=== PATIENT | female | born 1950 | race Caucasian/White ===

== ENCOUNTER 2017-04-27 09:18 | Emergency (ER) | payer MEDICARE, OTHER ==
[~2017-04-27] VITALS: Ht 157.5 cm; Wt 41.3 kg
[~2017-04-27 09:18] MED LIST: ACETAMINOPHEN-1 EAC1 PO; ADVAIR 250-501 EACH IH; ADVAIR 500-501 EACH INH; ADVAIR HFA 230M12 GM; ADVAIR HFA 230M12 GM PO; ALBUTEROL INH; ALPRAZOLAM; ALPRAZOLAM ER1 MG PO; ALPRAZOLAM PO; AUGMENTIN 875875 MG PO; B12INJ IM; BUTRANS1 EAC1 TD; CALCIUM 600 +1 EAC1 PO; COMBIVENT INH; DESYREL; DESYREL PO; DILAUDID 2 MG TA2 MG PO; DOXYCYCLINE 10100 M1 PO; ESTRACE2 MG PO; FENTANYL1 EAC3 TOP; FLEXERIL PO; FLUSH FLUSH; GLYCOLAX255 GM PO; HEPARIN 1,1000 UNIT/ IV; IBUPROFEN 800800 M1 PO; KLOR-CON 1010 MEQ PO; LASIX 20 MG TAB20 MG PO; LEVAQUIN 500 M500 M1 PO; LEVAQUIN 500 M500 MG PO; LIDODERM 5%1 PATC1 TRANSDERM; LOMOTIL TABLET1 EACH PO; LOPERAMIDE 2 MG2 M1 PO; LYRICA 75 MG CA75 MG PO; METAXALONE800 MG PO; MIDODRINE HCL 55 M1 PO; MOBIC7.5 MG PO; MUCINEX PO; MUCINEX TA600 MG/TA2 PO; NAPROSYN500 MG PO; NORCO 5-325 TA1 EACH PO; OMEPRAZOLE40 MG PO; ONDANSETRON HCL4 M2 PO; OXYGEN MISCELL; PERCOCET 5-3251 EACH PO; PERCOCET PO; POTASSIUM20 PO; PREDNISONE 10 M10 M1 PO; PREDNISONE 10 M10 MG; PREDNISONE 20 M20 M1 PO; PREDNISONE 20 M20 MG PO; PROAIR HFA8.5 GM INH; PROTONIX40 M1 PO; RANITIDINE 150150 M1 PO; SERTRALINE HCL50 MG PO; SKELAXIN 800 M800 M1 PO; SPIRIVA INH; TARCEVA100 MG PO; TRAZODONE HCL100 MG PO; VENTOLIN HFA 1818 GM INH; VENTOLIN HFA INH8 GM INH; XOPENEX; ZOCOR 20 MG TAB20 M1 PO; ZOCOR20 MG PO; ZOFRAN ODT4 MG PO; ZOLOFT OR
[2017-04-27] MEDS ORDERED: ADVAIR HFA 230M12 GM INH (09:29)
[2017-04-27 09:58] LABS: ABSOLUTE EOSINOPHILS 0.3 thou/uL (0.0-0.7); ABSOLUTE LYMPHOCYTES 0.6 thou/uL (0.8-5.3); ABSOLUTE MONOCYTES 0.3 thou/uL (0.0-1.2); BASOPHILS 0.5 %; EOSINOPHILS 6.2 %; HEMATOCRIT 35.3 % (37.0-47.0); HEMOGLOBIN 11.5 gm/dL (12.0-15.0); LYMPHOCYTES 13.2 %; MCH 30.9 pg (26.0-34.0); MCHC 32.6 g/dL (28.0-37.0); MCV 94.9 fL (80.0-100.0); MONOCYTES 8.1 %; MPV 7.9 fl. (7.2-11.1); NUCLEATED RBCS 0 /100WBC; PLATELET COUNT* 236 thou/uL (150-400); RBC 3.72 mil/uL (4.20-5.00); RDW-CV 14.8 % (10.5-14.5); WBC 4.2 thou/uL (4.0-11.0)
[2017-04-27 10:05] LABS: INR 1.1; PROTIME 10.9 Seconds (9.20-11.50)
[2017-04-27 10:07] LABS: ANION GAP 3 mmol/L (7-16); BUN 14 mg/dL (7-18); CALCIUM 9.1 mg/dL (8.5-10.1); CHLORIDE 101 mmol/L (98-107); CO2 32 mmol/L (21-32); CREATININE 1.3 mg/dL (0.6-1.3); GLUCOSE 127 mg/dL (70-99); POTASSIUM 3.2 mmol/L (3.5-5.1); SODIUM 136 mmol/L (136-145)
[2017-04-27 10:16] LABS: ALBUMIN 3.7 g/dL (3.4-5.0); ALKALINE PHOSPHATASE 97 U/L (46-116); LIPASE 53 U/L (73-393); NT-PRO BRAIN NAT PEPTIDE 316 pg/mL (<300); SGOT 20 U/L (15-37); SGPT 24 U/L (30-65); TOTAL BILIRUBIN 0.4 mg/dL (<0.1-1.0); TOTAL PROTEIN 6.9 g/dL (6.4-8.2); TROPONIN-I LEVEL <0.06 ng/mL (<0.06)
[2017-04-27 10:41] LABS: URINE BILIRUBIN NEGATIVE (Negative); URINE BLOOD TRACE (Negative); URINE CLARITY CLEAR; URINE COLOR YELLOW; URINE GLUCOSE-RANDOM NEGATIVE (Negative); URINE KETONES NEGATIVE (Negative); URINE LEUKOCYTES-REFLEX NEGATIVE (Negative); URINE NITRITE-REFLEX NEGATIVE (Negative); URINE PROTEIN 1+ (Negative); URINE UROBILINOGEN 0.2 E.U./dl (0.2-1.0)
[2017-04-27 12:38] VITALS: BP 107/58
--- NOTE | 2017-04-28 06:18 | EKG ---
[place] [address] ELECTROCARDIOGRAM REPORT Name: YASMIN ROBLES Room: [facility]#: [id number] Admission: 04/27/17 Attend Phys: Discharge: 04/27/17 Date of : 52 Report #: [id number] THIS REPORT FOR: //name// [facility] ED Test Date: 2017-04-27 Test Time: 09:24:54 Pat Name: YASMIN ROBLES Department: Room: Gender: F Employee Relations Manager: Piyush ESTRADA : 1950 Requested By: Tomas Stahl Order Number: [id number] MD: Patricio Garcia Measurements Intervals [place] Rate: 82 P: 83 ND: 153 QRS: 43 QRSD: 83 T: 58 QT: 379 QTc: 443 Interpretive Statements Sinus rhythm Possible left atrial enlargement RSR' in V1 or V2, right VCD or RVH Compared to ECG 09/15/2016 00:05:25 RSR' in V1 or V2 now present Sinus tachycardia no longer present Myocardial infarct finding no longer present Electronically Signed On 04-28-2017 6:18:24 COMPLIANCE PARALEGAL by Patricio Garcia [email or web address] <ELECTRONICALLY SIGNED> By: Patricio Garcia MD, FACC 04/28/17617 3 3 Patricio Garcia MD, FAC /EPI
== END 2017-04-27 12:40 | disposition home or self-care (01) ==
LOC: M.ERS 09:18
PROVIDERS: Emergency Medicine
DX: R07.89 Other chest pain (principal); F32.9 Major depressive disorder, single episode, unspecified; E78.00 Pure hypercholesterolemia, unspecified; Z85.118 Personal history of other malignant neoplasm of bronchus and lung; Z87.891 Personal history of nicotine dependence; Z88.1 Allergy status to other antibiotic agents; Z88.5 Allergy status to narcotic agent; Z85.830 Personal history of malignant neoplasm of bone

== ENCOUNTER 2017-05-17 21:13 | Emergency (ER) | payer MEDICARE, OTHER ==
[~2017-05-17] VITALS: Ht 154.9 cm; Wt 41.3 kg
[~2017-05-17 21:13] MED LIST changes: +ADVAIR HFA 230M12 GM INH
[2017-05-17 22:01] LABS: URINE BILIRUBIN NEGATIVE (Negative); URINE BLOOD NEGATIVE (Negative); URINE CLARITY CLEAR; URINE COLOR YELLOW; URINE GLUCOSE-RANDOM NEGATIVE (Negative); URINE KETONES NEGATIVE (Negative); URINE LEUKOCYTES-REFLEX NEGATIVE (Negative); URINE NITRITE-REFLEX NEGATIVE (Negative); URINE PROTEIN NEGATIVE (Negative); URINE SPECIFIC GRAVITY 1.015 (1.005-1.030); URINE UROBILINOGEN 0.2 E.U./dl (0.2-1.0)
[2017-05-17 23:04] VITALS: BP 128/58
== END 2017-05-17 23:06 | disposition home or self-care (01) ==
LOC: M.ERS 21:13
PROVIDERS: Emergency Medicine
DX: G89.29 Other chronic pain (principal); M54.5 Low back pain; F41.9 Anxiety disorder, unspecified; F32.9 Major depressive disorder, single episode, unspecified; E78.00 Pure hypercholesterolemia, unspecified; Z85.118 Personal history of other malignant neoplasm of bronchus and lung; Z88.1 Allergy status to other antibiotic agents; Z88.5 Allergy status to narcotic agent; Z87.891 Personal history of nicotine dependence

== ENCOUNTER → 2017-09-09 | Outpatient (CLI) | payer MEDICARE, OTHER | LOC: M.RAD 13:26 | DX: S92.324A Nondisplaced fracture of second metatarsal bone, right foot, initial encounter for closed fracture (principal); S92.334A Nondisplaced fracture of third metatarsal bone, right foot, initial encounter for closed fracture; S92.344A Nondisplaced fracture of fourth metatarsal bone, right foot, initial encounter for closed fracture; C34.90 Malignant neoplasm of unspecified part of unspecified bronchus or lung; J44.9 Chronic obstructive pulmonary disease, unspecified; X58.XXXA Exposure to other specified factors, initial encounter; Y93.89 Activity, other specified; Y92.89 Other specified places as the place of occurrence of the external cause; Y99.8 Other external cause status ==

== ENCOUNTER 2018-05-04 14:24 | Inpatient (IN) | payer MEDICARE, OTHER ==
[~2018-05-04] VITALS: Ht 154.9 cm; Wt 44.0 kg
--- NOTE | ~2018-05-04 | PROC ---
[address] [address] PROCEDURE REPORT Name: YASMIN ROBLES Room: [address]R.#: [id number] Admission: 05/04/18 Attend Phys: Fern Bernardo Discharge: 05/09/18 Date of : 52 Report #: [id number] THIS REPORT FOR: //name// For GI report, please see the Provation report in Perceptive 7 content. By: 0838Medical Records Staff CHANCE /RAJEEV
--- NOTE | ~2018-05-04 | CON ---
[address] [address] CONSULTATION Name: MARGARETYASMIN L Room: [address] IN .R.#: [id number] Admission: 05/04/18 Attend Phys: Fern Bernardo Discharge: Date of : 52 Report #: [id number] THIS REPORT FOR: //name// CC: BARBER Walker DICTATED BY: Birgit Lucero [facility] DATE OF SERVICE: 05/05/2018 Please note, at the time of this dictation the patient was seen and physically examined by myself. REASON FOR CONSULTATION: Dysphagia and worsening of her GERD. HISTORY OF PRESENT ILLNESS: This pleasant 67-year-old female who presents with difficulty swallowing, which she states for the last 2 weeks, which has worsened over the last several days. She states she will become very chocked and will cause her to vomit with both liquids and solids. She does take ranitidine regularly, but she has been eating a lot of Tums and other antacids without any relief. She is complaining of extreme chest discomfort with these acid reflux symptoms. The patient did undergo an EGD back in 04/2016 that showed a clean base gastric ulcer as well as a cratered duodenal ulcer and never had any further followup at that time. She also had a colonoscopy back in 2011; she was noted to have diverticulum, nonbleeding internal hemorrhoids and 2 polyps that were tubular adenoma. The patient states that her bowels move anywhere from daily to a couple of days, in between she will have constipation and then some diarrhea. She states her stools are dark, but she does take an iron supplement. ALLERGIES: MORPHINE AND ERYTHROMYCIN BASE. MEDICATIONS: From home, oxygen, albuterol, Tarceva, sertraline, ProAir, trazodone, Spiriva, alprazolam, Zocor, Advair, proamatine, ranitidine 150 mg. PAST MEDICAL HISTORY: History of lung cancer on the left with mets to the bone, depression, high cholesterol and chronic opioid dependency. FAMILY HISTORY: Noncontributory. SOCIAL HISTORY: Past history of tobacco use, negative alcohol or illegal drug use. REVIEW OF SYSTEMS: Twelve-point review [place] [address] CONSULTATION Name: YASMIN ROBLES Room: [address]#: [id number] Admission: 05/04/18 Attend Phys: Fern Bernardo Discharge: Date of : 52 Report #: [id number] except what is mentioned in the HPI. PHYSICAL EXAMINATION: VITAL SIGNS: Temperature 36.4, pulse 73, respirations 16, blood pressure 123/60. HEART: Regular rate and rhythm. LUNGS: Diminished. ABDOMEN: Soft, positive bowel sounds in all 4 quadrants with no masses or tenderness noted. LABORATORY DATA: Hemoglobin is 11.3, hematocrit 34.9, white count is 4.8, platelets 157. PT is 11, INR is 1.1. GFR is 41. IMPRESSION: 1. Dysphagia, both to solids and liquids. 2. Vomiting. 3. Gastroesophageal reflux disease, worsening despite ranitidine. 4. History of gastric and duodenal ulcers. 5. History of lung cancer with mets to the bone and O2 dependent. 6. History of colon polyps. PLAN: 1. EGD today at 1:[address] Whitfield. 2. Further recommendations to be made once the procedure has been performed. Thank you for allowing us to participate in this patient's care. Please do not hesitate to call with any questions in regard to this consult. ADDENDUM: I have seen and examined the patient and agree with plans that have been outlined by our nurse practitioner, Birgit Lucero. Because of her complaints of progressive dysphagia and chest discomfort, we will proceed with upper endoscopy today and make further recommendations thereafter. By: 1120 [id number] Whitfield DO /nt
[~2018-05-04 14:24] MED LIST changes: +FENTANYL PATCH75 MCG TRANSDERM; -FENTANYL1 EAC3 TOP
[2018-05-04 14:30] VITALS: BP 147/62
[2018-05-04 15:13] LABS: ABSOLUTE EOSINOPHILS 0.2 thou/uL (0.0-0.7); ABSOLUTE LYMPHOCYTES 0.5 thou/uL (0.8-5.3); ABSOLUTE MONOCYTES 0.5 thou/uL (0.0-1.2); ABSOLUTE NEUTROPHILS 3.6 thou/uL (1.6-8.1); BASOPHILS 0.4 %; EOSINOPHILS 5.1 %; HEMATOCRIT 34.9 % (37.0-47.0); HEMOGLOBIN 11.3 gm/dL (12.0-15.0); LYMPHOCYTES 10.6 %; MCH 31.7 pg (26.0-34.0); MCHC 32.3 g/dL (28.0-37.0); MCV 98.4 fL (80.0-100.0); MONOCYTES 9.4 %; MPV 8.8 fl. (7.2-11.1); NUCLEATED RBCS 0 /100WBC; PLATELET COUNT* 157 thou/uL (150-400); POLYS 74.5 %; RBC 3.55 mil/uL (4.20-5.00); RDW-CV 12.9 % (10.5-14.5); WBC 4.8 thou/uL (4.0-11.0)
[2018-05-04 15:21] LABS: ANION GAP 7 mmol/L (7-16); BUN 14 mg/dL (7-18); CALCIUM 8.4 mg/dL (8.5-10.1); CHLORIDE 104 mmol/L (98-107); CO2 26 mmol/L (21-32); CREATININE 1.3 mg/dL (0.6-1.3); GLUCOSE 86 mg/dL (70-99); POTASSIUM 4.5 mmol/L (3.5-5.1); SODIUM 137 mmol/L (136-145)
[2018-05-04 15:24] LABS: APTT 29.6 Seconds (25.0-31.3); INR 1.1
[2018-05-04 15:44] LABS: ALBUMIN 3.2 g/dL (3.4-5.0); ALKALINE PHOSPHATASE 71 U/L (46-116); CK-MB MASS 1.4 ng/mL (<0.5-3.6); LIPASE 51 U/L (73-393); MAGNESIUM 2.3 mg/dL (1.8-2.4); NT-PRO BRAIN NAT PEPTIDE 313 pg/mL (<300); SGOT 29 U/L (15-37); SGPT 32 U/L (30-65); TOTAL BILIRUBIN 0.5 mg/dL (<0.1-1.0); TOTAL PROTEIN 6.1 g/dL (6.4-8.2); TROPONIN-I LEVEL <0.06 ng/mL (<0.06)
[2018-05-04 20:00] VITALS: BP 118/43
[2018-05-05] VITALS: BP 112/48
[2018-05-05 04:00] VITALS: BP 91/47
[2018-05-05 08:00] VITALS: BP 123/60
[2018-05-05 11:58] VITALS: BP 86/45
[2018-05-05 12:47] LABS: HEMATOCRIT 28.6 % (37.0-47.0)
[2018-05-05 13:12] LABS: HEMOGLOBIN 9.3 gm/dL (12.0-15.0)
[2018-05-05 15:33] VITALS: BP 113/48
--- NOTE | 2018-05-05 18:19 | EKG ---
[place] [address] ELECTROCARDIOGRAM REPORT Name: YASMIN ROBLES Room: [address] ADM IN R.#: [id number] Admission: 05/04/18 Attend Phys: Fern Bernardo Discharge: Date of : 52 Report #: [id number] THIS REPORT FOR: //name// [facility] Test Date: 2018-05-04 Test Time: 14:32:19 Pat Name: YASMIN ROBLES Department: Room: [facility] Gender: F Broke Worker: : 1950 Requested By: Alexey Doyle Order Number: [id number] MD: Sina Joe Measurements Intervals [place] Rate: 69 P: 56 [place]: 165 QRS: 48 QRSD: 74 T: 75 QT: 373 QTc: 400 Interpretive Statements Sinus rhythm Probable left atrial enlargement RSR' in V1 or V2, right VCD or RVH Compared to ECG 04/27/2017 09:24:54 No significant changes Electronically Signed On 05-05-2018 18:19:13 TRANSITION PROGRAM MANAGER by Sina Joe [email or web address] <ELECTRONICALLY SIGNED> By: Sina Joe MD, FAC 05/05/18 1819 1432 1432 Sina Joe MD, [facility] /EPI
[2018-05-05 19:28] LABS: URINE BILIRUBIN NEGATIVE (Negative); URINE BLOOD TRACE (Negative); URINE CLARITY CLEAR; URINE COLOR YELLOW; URINE GLUCOSE-RANDOM NEGATIVE (Negative); URINE KETONES NEGATIVE (Negative); URINE LEUKOCYTES-REFLEX NEGATIVE (Negative); URINE NITRITE-REFLEX NEGATIVE (Negative); URINE PROTEIN NEGATIVE (Negative); URINE UROBILINOGEN 0.2 E.U./dl (0.2-1.0)
[2018-05-05 20:00] VITALS: BP 106/47
[2018-05-06] VITALS (8 sets, daily range): BP systolic 103–136; BP diastolic 31–64
[2018-05-06 05:38] LABS: ABSOLUTE EOSINOPHILS 0.3 thou/uL (0.0-0.7); ABSOLUTE LYMPHOCYTES 0.6 thou/uL (0.8-5.3); ABSOLUTE MONOCYTES 0.4 thou/uL (0.0-1.2); ABSOLUTE NEUTROPHILS 1.8 thou/uL (1.6-8.1); BASOPHILS 0.6 %; EOSINOPHILS 9.3 %; HEMATOCRIT 28.5 % (37.0-47.0); HEMOGLOBIN 9.3 gm/dL (12.0-15.0); LYMPHOCYTES 18.3 %; MCH 31.3 pg (26.0-34.0); MCHC 32.5 g/dL (28.0-37.0); MCV 96.2 fL (80.0-100.0); MPV 8.9 fl. (7.2-11.1); NUCLEATED RBCS 0 /100WBC; PLATELET COUNT* 152 thou/uL (150-400); POLYS 58.8 %; RBC 2.97 mil/uL (4.20-5.00); RDW-CV 12.9 % (10.5-14.5)
[2018-05-06 05:53] LABS: ALBUMIN 2.5 g/dL (3.4-5.0); CALCIUM 7.6 mg/dL (8.5-10.1); CREATININE 0.9 mg/dL (0.6-1.3); MAGNESIUM 1.8 mg/dL (1.8-2.4); POTASSIUM 4.4 mmol/L (3.5-5.1); TOTAL BILIRUBIN 0.2 mg/dL (<0.1-1.0); TOTAL PROTEIN 5.2 g/dL (6.4-8.2)
[2018-05-06 06:35] LABS: ESR (SEDRATE) 5 mm/hr (0-30)
[2018-05-07] VITALS (7 sets, daily range): BP systolic 71–114; BP diastolic 32–45
[2018-05-08 03:45] VITALS: BP 96/59
[2018-05-08 05:38] LABS: HEMOGLOBIN 10.9 gm/dL (12.0-15.0)
[2018-05-08 05:40] LABS: HEMATOCRIT 32.9 % (37.0-47.0); MCH 31.5 pg (26.0-34.0); MCHC 33.2 g/dL (28.0-37.0); MCV 94.6 fL (80.0-100.0); NUCLEATED RBCS 0 /100WBC; PLATELET COUNT* 204 thou/uL (150-400); RBC 3.47 mil/uL (4.20-5.00); RDW-CV 12.9 % (10.5-14.5); WBC 3.9 thou/uL (4.0-11.0)
[2018-05-08 06:07] LABS: ALBUMIN 3.1 g/dL (3.4-5.0); CALCIUM 8.6 mg/dL (8.5-10.1); TOTAL BILIRUBIN 0.4 mg/dL (<0.1-1.0); TOTAL PROTEIN 5.9 g/dL (6.4-8.2)
[2018-05-08 06:36] LABS: ABSOLUTE EOSINOPHILS 0.4 thou/uL (0.0-0.7); ABSOLUTE LYMPHOCYTES 0.7 thou/uL (0.8-5.3); ABSOLUTE MONOCYTES 0.5 thou/uL (0.0-1.2); ABSOLUTE NEUTROPHILS 2.3 thou/uL (1.6-8.1); ANISOCYTOSIS 1+; PLATELET ESTIMATE ADEQUATE; POIKILOCYTOSIS 1+
[2018-05-08 08:00] VITALS: BP 103/39
[2018-05-08 12:00] VITALS: BP 88/26
[2018-05-08 16:00] VITALS: BP 93/18
[2018-05-09] VITALS: BP 100/50
[2018-05-09 07:30] VITALS: BP 98/45
--- NOTE | 2018-05-09 11:07 | PATH ---
[address] [address] PATHOLOGY RPT PROCEDURE Name: ALEIDA QUAN Room: [address] IN .R.#: [id number] Admission: 05/04/18 Date of : 52 Discharge: Report #: [id number] Path Case #: [id number] [facility] Accession Number: [id number] . 01 Material submitted: . PART A: ANTRAL BIOPSY PART B: ESOPHAGEAL BIOPSY . 01 Clinical history: . Antral biopsy for H. pylori and gastric and duodenal ulcer Esophageal biopsy at 38 cm for severe esophagitis . 02 Diagnosis: A. Antral biopsy: - Mild nonspecific chronic antral gastritis, negative for Helicobacter pylori organisms and dysplasia. . B. Esophageal biopsy 38 cm: - Severe active esophagitis with ulceration and prominent epithelial necrosis suggesting "pill esophagitis", negative for granulomas, viral inclusions and malignancy. . (WANDA:beverly; 05/06/2018) JOSEPH/05/06/2018 . 02 Comment: Special stain on A: H. pylori immunostain (WANDA:heater engineer helper; 05/06/2018) . 02 Electronically signed: . Amilcar Gonsalez MD, Pathologist NPI- [id number] . 01 Gross description: . A. Received in formalin labeled "Aleida Quan, antral biopsy," is a single segment of steele soft tissue measuring 0.5 cm in maximum dimension. The specimen is entirely submitted in cassette A1. . B. Received in formalin labeled "Aleida Quan, esophageal biopsy 38 cm," are 2 segments of steele soft tissue measuring 0.5 x 0.2 x 0.2 cm in aggregate dimensions and ranging from 0.2 to 0.3 cm in maximum dimension. The specimen is submitted entirely in cassette B1. (TSD; 05/05/2018) TOB/TOB . 02 Pathologist provided ICD-10: K29.50, K20.9 . 02 [place] [address] PATHOLOGY RPT PROCEDURE Name: ALEIDA QUAN Room: [address]#: [id number] Admission: 05/04/18 Date of : 52 Discharge: Report #: [id number] Path Case #: [id number] [facility] . [id number], [id number], [id number] Specimen Comment: A courtesy copy of this report has been sent to Specimen Comment: [phone], , . Specimen Comment: Report sent to ,DR ESTRADA / DR LEMUS Specimen Comment: A duplicate report has been generated due to demographic updates. Performed at: [address], [place], [place] [id number] MD Gabriel Smith MD Phone: [phone] Performed at: 02 [facility] [place] [facility] [address], [place], [place] [id number] MD Amilcar Gonsalez MD Phone: [phone]
[2018-05-09 12:00] VITALS: BP 116/75; BP 81/38
[2018-05-09] MEDS ORDERED: PROTONIX40 M1 PO ×2 (14:15→15:32)
[2018-05-09] MEDS ORDERED: CARAFATE 1 GM TA1 G1 PO ×2 (14:15→15:31)
[2018-05-09 14:57] VITALS: BP 81/38
== END 2018-05-09 16:50 | disposition home health service (06) | DRG 391 ==
LOC: M.ERS 14:24 → M.2W 16:02 → M.TBA-ER 16:02 → M.2W 18:36
PROVIDERS: Family Medicine; Internal Medicine; Internal Medicine Gastroenterology; Nurse Practitioner Adult Health; ADMIT Internal Medicine
PROC: 0DB68ZX Excision of Stomach, Via Natural or Artificial Opening Endoscopic, Diagnostic (ICD-10-PCS; principal; 2018-05-05)
PROC: 0DB58ZX Excision of Esophagus, Via Natural or Artificial Opening Endoscopic, Diagnostic (ICD-10-PCS; principal; 2018-05-05)
DX: K22.2 Esophageal obstruction (principal); K25.0 Acute gastric ulcer with hemorrhage; K22.11 Ulcer of esophagus with bleeding; K26.0 Acute duodenal ulcer with hemorrhage; C34.90 Malignant neoplasm of unspecified part of unspecified bronchus or lung; C79.51 Secondary malignant neoplasm of bone; E44.0 Moderate protein-calorie malnutrition; K31.5 Obstruction of duodenum; Z68.1 Body mass index [BMI] 19.9 or less, adult; F32.9 Major depressive disorder, single episode, unspecified; E78.00 Pure hypercholesterolemia, unspecified; R13.10 Dysphagia, unspecified; K21.9 Gastro-esophageal reflux disease without esophagitis; D63.8 Anemia in other chronic diseases classified elsewhere; F41.1 Generalized anxiety disorder; R33.9 Retention of urine, unspecified; R39.15 Urgency of urination; F41.9 Anxiety disorder, unspecified; J43.9 Emphysema, unspecified; E78.5 Hyperlipidemia, unspecified; N32.81 Overactive bladder; Z79.891 Long term (current) use of opiate analgesic; Z88.6 Allergy status to analgesic agent; Z88.1 Allergy status to other antibiotic agents; Z87.891 Personal history of nicotine dependence; Z86.010 Personal history of colon polyps

== ENCOUNTER 2018-07-02 15:25 | Emergency (ER) | payer MEDICARE, OTHER ==
[~2018-07-02] VITALS: Ht 157.5 cm; Wt 42.6 kg
[~2018-07-02 15:25] MED LIST changes: +CARAFATE 1 GM TA1 G1 PO
[2018-07-02] MEDS ORDERED: DILAUDID 2 MG TA2 MG PO (15:34)
[2018-07-02 16:34] VITALS: BP 116/67
[2018-07-05] MEDS ORDERED: NEURONTIN 300300 M1 PO (10:30)
[2018-07-05] MEDS ORDERED: ONDANSETRON HCL4 M2 PO (10:31)
[2018-07-05] MEDS ORDERED: IRON325 PO (10:31)
[2018-07-05] MEDS ORDERED: OXYGEN MISCELL (10:32)
== END 2018-07-02 16:35 | disposition home or self-care (01) ==
LOC: M.ERS 15:25
DX: S93.492A Sprain of other ligament of left ankle, initial encounter (principal); Z85.118 Personal history of other malignant neoplasm of bronchus and lung; F32.9 Major depressive disorder, single episode, unspecified; E78.00 Pure hypercholesterolemia, unspecified; Z85.830 Personal history of malignant neoplasm of bone; Z88.1 Allergy status to other antibiotic agents; Z88.5 Allergy status to narcotic agent; Z87.891 Personal history of nicotine dependence; W01.0XXA Fall on same level from slipping, tripping and stumbling without subsequent striking against object, initial encounter; Y93.89 Activity, other specified; Y92.89 Other specified places as the place of occurrence of the external cause; Y99.8 Other external cause status

== ENCOUNTER → 2018-07-20 | Day surgery (SDC) | payer MEDICARE, OTHER ==
[~2018-07-20] MED LIST changes: +ALEVE220 MG PO; +ALKA-SELTZER P1 EACH PO; +ALKA-SELTZER PL25 MG PO; +DOXYCYCLINE 10100 MG PO; +IBUPROFEN 400400 M2 PO; +IRON325 PO; +NEURONTIN 300300 M1 PO; +PREDNISONE10 MG PO; +STIOLTO RESPIMAT4 GM INH
--- NOTE | ~2018-07-20 | PROC ---
[address] [address] PROCEDURE REPORT Name: YASMIN ROBLES Room: [facility]#: [id number] Admission: 07/20/18 Attend Phys: Joanne Robertson MD Discharge: Date of : 52 Report #: [id number] THIS REPORT FOR: //name// For GI report, please see the Provation report in Perceptive 7 content. By: 0827Medical Records Staff CHANCE /RAJEEV
[2018-07-20 09:08] LABS: HEMATOCRIT 35.5 % (37.0-47.0); HEMOGLOBIN 11.1 gm/dL (12.0-15.0); MCH 28.5 pg (26.0-34.0); MCHC 31.3 g/dL (28.0-37.0); MPV 7.8 fl. (7.2-11.1); RBC 3.9 mil/uL (4.20-5.00); RDW-CV 14.3 % (10.5-14.5)
[2018-07-20 09:16] LABS: CALCIUM 8.8 mg/dL (8.5-10.1); POTASSIUM 4.3 mmol/L (3.5-5.1)
[2018-07-20 09:21] LABS: ALBUMIN 3.6 g/dL (3.4-5.0); TOTAL BILIRUBIN 0.4 mg/dL (<0.1-1.0); TOTAL PROTEIN 6.5 g/dL (6.4-8.2)
--- NOTE | 2018-07-22 16:06 | PATH ---
[address] [address] PATHOLOGY RPT PROCEDURE Name: DICKERSONALEIDA L [id number] Admission: 07/20/18 Date of : 52 Discharge: Report #: [id number] Path Case #: [id number] [facility] Accession Number: [id number] . 01 Material submitted: . PART A: esophagus - BIOPSY OF ESOPHAGUS PART B: stomach - BIOPSY OF STOMACH . 01 Clinical history: . Esophagitis, GERD, dysphagia, history of colon polyps . 02 Diagnosis: A. Tissue submitted as "biopsy of esophagus": - Moderate nonspecific active duodenitis, negative for granulomas, viral inclusions and dysplasia. See comment. . B. Biopsy of stomach: - Mild chronic active gastritis suggesting reactive gastropathy (chemical gastritis), negative for Helicobacter pylori organisms, granulomas and dysplasia. (WANDA:pit 07/22/2018) QTP/07/22/2018 . 02 Comment: Review of Dr. Robertson's EGD procedure report dated 07/20/2018, reveals biopsies to have been taken of the duodenum and stomach. (WANDA:pit 07/22/2018) . Special stain: H. pylori immuno on B . Electronically signed: . Amilcar Gonsalez MD, Pathologist NPI- [id number] . 01 Gross description: . A. Received in formalin labeled "Aleida Dickerson, biopsy of esophagus," are 4 segments of steele soft tissue measuring 1.0 x 0.8 x 0.2 cm in aggregate dimensions and ranging from 0.3 to 0.4 cm in maximum dimension. The specimen is submitted entirely in cassette A1. . B. Received in formalin labeled "Aleida Dickerson, biopsy of stomach," are 4 segments of steele soft tissue measuring 1.1 x 0.8 x 0.2 cm in aggregate dimensions and ranging from 0.2 to 0.4 cm in maximum dimension. The specimen is submitted entirely in cassette B1. (TSD; 07/21/2018) TOB/TOB . 02 Pathologist provided ICD-10: [place] [address] PATHOLOGY RPT PROCEDURE Name: ALEIDA DICKERSON Room: [facility]#: [id number] Admission: 07/20/18 Date of : 52 Discharge: Report #: [id number] Path Case #: [id number] K29.80, K29.50 . 02 CPT . [id number], [id number], [id number] Specimen Comment: A courtesy copy of this report has been sent to Specimen Comment: [phone], . Specimen Comment: Report sent to / DR LANCE Performed at: [address], [place], [place] [id number] MD Gabriel Smith MD Phone: [phone] Performed at: 02 [facility] [address], [place], [place] [id number] MD Amilcar Gonsalez MD Phone: [phone]
== END | disposition home or self-care (01) ==
LOC: M.SUR 08:05
PROVIDERS: Internal Medicine Gastroenterology
DX: Z12.11 Encounter for screening for malignant neoplasm of colon (principal); K29.50 Unspecified chronic gastritis without bleeding; K31.89 Other diseases of stomach and duodenum; K64.8 Other hemorrhoids; K26.9 Duodenal ulcer, unspecified as acute or chronic, without hemorrhage or perforation; K44.9 Diaphragmatic hernia without obstruction or gangrene; I10 Essential (primary) hypertension; J44.9 Chronic obstructive pulmonary disease, unspecified; E78.5 Hyperlipidemia, unspecified; F32.9 Major depressive disorder, single episode, unspecified; K21.9 Gastro-esophageal reflux disease without esophagitis; Z88.6 Allergy status to analgesic agent; Z87.891 Personal history of nicotine dependence; Z88.8 Allergy status to other drugs, medicaments and biological substances; Z90.49 Acquired absence of other specified parts of digestive tract; Z90.710 Acquired absence of both cervix and uterus; Z98.890 Other specified postprocedural states; Z79.899 Other long term (current) drug therapy; Z85.118 Personal history of other malignant neoplasm of bronchus and lung; Z86.010 Personal history of colon polyps

== ENCOUNTER 2018-08-20 13:13 | Emergency (ER) | payer MEDICARE, OTHER ==
[~2018-08-20] VITALS: Ht 154.9 cm; Wt 36.3 kg
[2018-08-20 13:51] LABS: URINE BILIRUBIN NEGATIVE (Negative); URINE BLOOD NEGATIVE (Negative); URINE CLARITY CLEAR; URINE COLOR YELLOW; URINE GLUCOSE-RANDOM NEGATIVE (Negative); URINE KETONES NEGATIVE (Negative); URINE LEUKOCYTES-REFLEX NEGATIVE (Negative); URINE NITRITE-REFLEX NEGATIVE (Negative); URINE PROTEIN TRACE (Negative); URINE SPECIFIC GRAVITY 1.015 (1.005-1.030); URINE UROBILINOGEN 0.2 E.U./dl (0.2-1.0)
[2018-08-20 13:58] LABS: AMP/METHAMP Negative (Negative); BARBITURATES Negative (Negative); BENZODIAZEPINES POSITIVE (Negative); COCAINE Negative (Negative); METHADONE Negative (Negative); OPIATES POSITIVE (Negative); PCP Negative (Negative); THC Negative (Negative)
[2018-08-20 14:02] LABS: ABSOLUTE EOSINOPHILS 0.3 thou/uL (0.0-0.7); ABSOLUTE LYMPHOCYTES 0.8 thou/uL (0.8-5.3); ABSOLUTE MONOCYTES 0.5 thou/uL (0.0-1.2); ABSOLUTE NEUTROPHILS 3.6 thou/uL (1.6-8.1); BASOPHILS 0.5 %; EOSINOPHILS 6.4 %; HEMOGLOBIN 10.4 gm/dL (12.0-15.0); LYMPHOCYTES 14.6 %; MCHC 32.4 g/dL (28.0-37.0); MCV 89.4 fL (80.0-100.0); MPV 8.1 fl. (7.2-11.1); NUCLEATED RBCS 0 /100WBC; PLATELET COUNT* 272 thou/uL (150-400); POLYS 69.5 %; RBC 3.58 mil/uL (4.20-5.00); RDW-CV 14.5 % (10.5-14.5); WBC 5.2 thou/uL (4.0-11.0)
[2018-08-20 14:09] LABS: CALCIUM 9.1 mg/dL (8.5-10.1); POTASSIUM 3.7 mmol/L (3.5-5.1)
[2018-08-20 14:14] LABS: ALBUMIN 3.5 g/dL (3.4-5.0); TOTAL BILIRUBIN 0.3 mg/dL (<0.1-1.0)
[2018-08-20 15:12] VITALS: BP 152/67
--- NOTE | 2018-08-22 13:29 | EKG ---
[place] [address] ELECTROCARDIOGRAM REPORT Name: YASMIN ROBLES Room: [facility]#: [id number] Admission: 08/20/18 Attend Phys: Discharge: 08/20/18 Date of : 52 Report #: [id number] THIS REPORT FOR: //name// [facility] ED Test Date: 2018-08-20 Test Time: 13:22:39 Pat Name: YASMIN ROBLES Department: Room: Gender: F Video Control Operator: MS : 1950 Requested By: Cece Somers Order Number: [id number] MD: Sina Joe Measurements Intervals [place] Rate: 64 P: [place]: QRS: 49 QRSD: 77 T: 83 QT: 399 QTc: 412 Interpretive Statements Sinus rhythm Abnormal R-wave progression, early transition Repol abnrm suggests ischemia, lateral leads Minimal ST elevation, inferior leads Compared to ECG 05/04/2018 14:32:19 Early repolarization now present Possible ischemia now present ST (T wave) deviation now present Right ventricular hypertrophy no longer present Electronically Signed On 08-22-2018 13:29:34 CDT by Sina Joe [email or web address] <ELECTRONICALLY SIGNED> By: Sina Joe MD, [facility] 08/22/18 1329 1322 1322 Sina Joe MD, [facility] /EPI
== END 2018-08-20 15:12 | disposition home or self-care (01) ==
LOC: M.ERS 13:13
PROVIDERS: Nurse Practitioner Family
DX: F13.239 Sedative, hypnotic or anxiolytic dependence with withdrawal, unspecified (principal); F32.9 Major depressive disorder, single episode, unspecified; E78.00 Pure hypercholesterolemia, unspecified; Z85.118 Personal history of other malignant neoplasm of bronchus and lung; Z87.891 Personal history of nicotine dependence; Z88.1 Allergy status to other antibiotic agents; Z88.5 Allergy status to narcotic agent

== ENCOUNTER → 2018-08-22 | Outpatient (CLI) | payer MEDICARE, OTHER ==
--- NOTE | 2018-08-22 12:05 | NUR ---
Lab called and has orders for patient to have port-a-cath accessed to draw lab. Pt was brought down to infusion area. Accessed port with 3/4 in bent 20g needle. Lab was obtained and pts port flushed very easily. Packed port with Hep 500units at 1209. Removed access and pt wheeled out with Lab personnel.
== END ==
LOC: M.LAB 11:58
DX: R79.0 Abnormal level of blood mineral (principal); Z79.899 Other long term (current) drug therapy

== ENCOUNTER → 2018-08-30 | Outpatient (CLI) | payer MEDICARE, OTHER | LOC: M.RAD 11:14 | DX: Z12.31 Encounter for screening mammogram for malignant neoplasm of breast (principal) ==

== ENCOUNTER 2018-11-18 17:52 | Inpatient (IN) | payer MEDICARE, OTHER ==
[~2018-11-18] VITALS: Ht 157.5 cm; Wt 48.0 kg
--- NOTE | ~2018-11-18 | CON ---
[address] [address] CONSULTATION Name: YASMIN ROBLES Room: [address] IN M.R.#: [id number] Admission: 11/18/18 Attend Phys: Christopher Andujar MD Discharge: Date of : 52 Report #: [id number] THIS REPORT FOR: //name// CC: Christopher Mcdaniel DO DICTATED BY: Birgit HARDWICK DATE OF SERVICE: 11/24/2018 This is RICHARD Ferrari dictating a consultation note for Dr. Joanne Robertson. Please note at the time of this dictation, the patient was seen and physically examined by myself. REASON FOR CONSULTATION: Diarrhea and dysphagia. HISTORY OF PRESENT ILLNESS: This 68-year-old female who presented to the hospital with abdominal pain, which was worsening over the last 3 days along with nausea and vomiting. The patient was noted to have a small-bowel obstruction and since admission that has been resolved. She has been eating and drinking without significant issues. She does have ongoing issues with nausea and having difficulty with swallowing that is getting worse, mainly with solid foods. The patient states that she has not had any loose stools or liquid stools this a.m. She did have a couple yesterday. She did not notice any bright red blood or any melena noted. The patient was last seen by us in 07/2018. She underwent an EGD showed a small hiatal hernia, some gastritis. She was dilated with a 51-Wolof with mild resistance. She did undergo a colonoscopy that showed some nonbleeding internal hemorrhoids and she had a very poor prep. The patient was scheduled next week to have an office visit with an outpatient procedure then the following week for an EGD for redilatation and evaluation of her gastritis. Since the patient is currently in the hospital, we will do that at this time tomorrow. ALLERGIES: MORPHINE AND ERYTHROMYCIN. MEDICATIONS FROM HOME: Included Carafate, pantoprazole, gabapentin, ferrous sulfate, Zocor, alprazolam, trazodone, ProAir, Zoloft, Tarceva, Duragesic patch, midodrine, Advair, oxygen, Dilaudid, Zofran, ranitidine, Lomotil. PAST MEDICAL HISTORY: Left lung cancer with mets to the bone, depression, high cholesterol, irritable bowel syndrome and chronic opioid dependency. She has [place] [address] CONSULTATION Name: YASMIN ROBLES Room: [address]#: [id number] Admission: 11/18/18 Attend Phys: Christopher Andujar MD Discharge: Date of : 52 Report #: [id number] PAST SURGICAL HISTORY: Appendectomy, breast biopsy, cholecystectomy, hysterectomy, tonsillectomy. FAMILY HISTORY: Noncontributory. SOCIAL HISTORY: , lives with her . Alcohol on occasion and she quit smoking less than a year ago. REVIEW OF SYSTEMS: Twelve-point review of systems is essentially negative except what is mentioned in the HPI. PHYSICAL EXAMINATION: VITAL SIGNS: Temperature 36.8, pulse 84, respirations 20, blood pressure 159/80. HEART: Regular rate and rhythm. LUNGS: Diminished, especially on the left. ABDOMEN: Soft, positive bowel sounds in all 4 quadrants, which is some very mild tenderness noted to palpation. LABORATORY DATA: GFR is 72. Hemoglobin 9.2, white count 3.3, platelets 207. IMPRESSION: 1. Dysphagia. 2. Nausea, ongoing. 3. Diarrhea, improving. 4. Small-bowel obstruction has resolved. 5. Metastatic lung cancer to bone. 6. O2 dependent. PLAN: 1. EGD tomorrow with Dr. Sullivan to assess her gastritis and redilate her for her dysphagia. 2. C. difficile is pending. 3. Further recommendations to be made once the procedure has been performed. Thank you for allowing us to participate in this patient's care. Please do not hesitate to call with any questions in regard to this consult. By: 1124 [id number] Robertson MD /xi
--- NOTE | ~2018-11-18 | PROC ---
[address] [address] PROCEDURE REPORT Name: YASMIN ROBLES Room: [address] IN .R.#: [id number] Admission: 11/18/18 Attend Phys: Christopher Andujar MD Discharge: 11/26/18 Date of : 52 Report #: [id number] THIS REPORT FOR: //name// For GI report, please see the Provation report in Perceptive 7 content. By: [id number] Records Staff CHANCE /RAJEEV
[~2018-11-18 17:52] MED LIST changes: -ALKA-SELTZER P1 EACH PO
[2018-11-18 17:56] VITALS: BP 127/38
[2018-11-18 18:49] LABS: ABSOLUTE EOSINOPHILS 0.1 thou/uL (0.0-0.7); ABSOLUTE LYMPHOCYTES 0.6 thou/uL (0.8-5.3); ABSOLUTE MONOCYTES 0.4 thou/uL (0.0-1.2); ABSOLUTE NEUTROPHILS 4.3 thou/uL (1.6-8.1); BASOPHILS 0.2 %; EOSINOPHILS 1.3 %; HEMATOCRIT 26.1 % (37.0-47.0); HEMOGLOBIN 8.1 gm/dL (12.0-15.0); LYMPHOCYTES 10.9 %; MCH 29.7 pg (26.0-34.0); MCHC 31.2 g/dL (28.0-37.0); MCV 95.2 fL (80.0-100.0); MONOCYTES 7.2 %; NUCLEATED RBCS 0 /100WBC; PLATELET COUNT* 243 thou/uL (150-400); POLYS 80.4 %; RBC 2.74 mil/uL (4.20-5.00); RDW-CV 13.3 % (10.5-14.5); WBC 5.4 thou/uL (4.0-11.0)
--- NOTE | 2018-11-18 19:01 | NUR ---
REPORT GIVEN TO JEREMY AGUIRRE WHO IS TO ASSUME PT CARE AT THIS TIME.
[2018-11-18 19:02] LABS: CALCIUM 8.8 mg/dL (8.5-10.1); CREATININE 1.5 mg/dL (0.6-1.3); POTASSIUM 3.7 mmol/L (3.5-5.1)
[2018-11-18 19:06] LABS: ALBUMIN 3.4 g/dL (3.4-5.0); TOTAL BILIRUBIN 0.5 mg/dL (<0.1-1.0); TOTAL PROTEIN 5.8 g/dL (6.4-8.2)
[2018-11-18 22:12] VITALS: BP 99/66
[2018-11-18 22:17] VITALS: BP 121/42
[2018-11-19 04:00] VITALS: BP 92/25
--- NOTE | 2018-11-19 04:22 | NUR ---
ASSUMED CARE OF PT AT 2200. PT IS CERY CONFUSED WITH BIZARRE BEHAVIORS WHICH GET WORSE AFTER DILAUDID WAS GIVEN. PT APPEARED TO BE HALLUCINATING, SHE WAS GRASPING FOR THINGS IN THE AIR. PT ALSO VERY IMPULSIVE AND TAKING THE WIRES OFF THE NOCTURNAL OX AND PULLING HER NG TUBE APART SEVERAL TIMES. VSS. PERRLA. NG TUBE WAS PLACED. XRAY CONFIRMED. NG TO LIS IN LEFT NARE AT 54 CM. PT IS IN SINUS RYRHM ON THE TELEMETRY. PT IS RESTING COMFORTABLY IN BED. RESPIRATIONS ARE EVEN AND NONLABORED. WILL CONTINUE TO MONITOR PT.
[2018-11-19 06:02] LABS: HEMATOCRIT 21.6 % (37.0-47.0); MCHC 31.4 g/dL (28.0-37.0); MCV 95.8 fL (80.0-100.0); MPV 8.4 fl. (7.2-11.1); RBC 2.26 mil/uL (4.20-5.00); RDW-CV 13.5 % (10.5-14.5); WBC 4.2 thou/uL (4.0-11.0)
[2018-11-19 06:05] LABS: HEMOGLOBIN 6.8 gm/dL (12.0-15.0)
[2018-11-19 06:15] LABS: PHOSPHORUS* 2.5 mg/dL (2.5-4.9)
[2018-11-19 06:18] LABS: ALBUMIN 2.5 g/dL (3.4-5.0); CALCIUM 7.3 mg/dL (8.5-10.1); CREATININE 1.3 mg/dL (0.6-1.3); POTASSIUM 4.4 mmol/L (3.5-5.1); TOTAL BILIRUBIN 0.6 mg/dL (<0.1-1.0); TOTAL PROTEIN 4.5 g/dL (6.4-8.2)
[2018-11-19 08:00] VITALS: BP 126/42
[2018-11-19 09:27] VITALS: BP 113/47; BP 122/46; BP 131/48; BP 134/56; BP 145/76
--- NOTE | 2018-11-19 16:08 | NUR ---
PATIENT GIVEN 1 UNIT OF BLOOD ORDERED, H/H REDRAW ORDERED. IVF AND SCHED ABX INFUSING ORDERED. NG TUBE REMAINS IN PLACE, DRAINING TO LIS. PATIENT GIVE PRN ATIVAN AND DILAUDID PER ORDERS, GOOD RELIEF NOTED. PATIENT HAD 2 VERY SOFT/LIQUID BM'S THIS SHIFT. PATIENT WAS UNABLE TO HOLD ENEMA THAT WAS ORDERED. INCONTINENT OF URINE. AT BEDSIDE. REMAINS NPO.
[2018-11-19 18:19] LABS: HEMATOCRIT 29.1 % (37.0-47.0)
[2018-11-19 18:29] LABS: HEMOGLOBIN 9.4 gm/dL (12.0-15.0)
[2018-11-19 19:40] VITALS: BP 132/64
[2018-11-20 00:20] VITALS: BP 140/38
[2018-11-20 04:00] VITALS: BP 135/68
[2018-11-20 04:15] LABS: HEMATOCRIT 28.8 % (37.0-47.0); HEMOGLOBIN 9.1 gm/dL (12.0-15.0); MCH 29.2 pg (26.0-34.0); MCHC 31.4 g/dL (28.0-37.0); MPV 8.2 fl. (7.2-11.1); RBC 3.1 mil/uL (4.20-5.00); RDW-CV 15.2 % (10.5-14.5); WBC 3.7 thou/uL (4.0-11.0)
[2018-11-20 04:39] LABS: ALBUMIN 2.2 g/dL (3.4-5.0); CALCIUM 6.5 mg/dL (8.5-10.1); CREATININE 0.9 mg/dL (0.6-1.3); PHOSPHORUS* 1.9 mg/dL (2.5-4.9); POTASSIUM 4.1 mmol/L (3.5-5.1); TOTAL BILIRUBIN 0.4 mg/dL (<0.1-1.0); TOTAL PROTEIN 4.4 g/dL (6.4-8.2)
[2018-11-20 07:30] VITALS: BP 133/55
--- NOTE | 2018-11-20 08:00 | NUR ---
LABS REVIEWED THIS AM FOLLOWING REPORT. PATIENT NOTED TO HAVE A GLUCOSE OF 47. SPOKE WITH DR. RIVER FROM SURGERY WHO HAD JUST ROUNDED ON PATIENT AND OK TO DO OBTAIN A FINGER STICK GLUCOSE. GLUCOSE NOTED TO BE 43. ORDERS RECEIVED FOR ONE TIME DOSE OF D50 AMP. MEDICATION GIVEN AND BLOOD GLUCOSE RECHECK NOTED TO BE 178. DR. RIVER AND DR. ESTRADA BOTH AWARE.
[2018-11-20 11:57] VITALS: BP 138/58
[2018-11-20 15:32] VITALS: BP 151/52
--- NOTE | 2018-11-20 16:21 | NUR ---
PATIENT HAD ABD XRAY THIS AM. AWARE OF RESULTS AND DR. MATOS ORDERED NG CLAMPED AND CLEAR LIQUID DIET. PATIENT EDUCATED ON LIMITING CLEAR LIQUIDS AND DRINKING/EATING SLOWLY. SMALL SMEARS OF STOOL NOTED THIS SHIFT, SUPPOSITORY WAS GIVEN THIS AM ORDERED. PATIENT C/O ABD AND BACK PAIN, PRN DILAUDID GIVEN X 3 THIS SHIFT. PRN ATIVAN GIVEN BUT PATIENT C/O NO ANXIETY RELIEF. DR. ESTRADA NOTIFIED AND OK FOR PO XANAX. TARCEVA CHEMO DRUG SENT TO PHARMACY AND WILL GIVE WHEN VERIFIED. NO COMPLAINTS OF NAUSEA AND NO VOMITTING NOTED. RIGHT PAC REMAINS INFUSING IVF AND SCHED ZOSYN ORDERED. UP TO CHAIR THIS AFTERNOON AND ASSISTED WITH BATHING. CONT PULSE OX REMAINS IN PLACE, PATIENT TAKES OFF 02 FREQUENTLY AND REMINDED TO LEAVE IN PLACE. HORSE DOCTOR TRACING SR.
[2018-11-20 20:00] VITALS: BP 122/84
[2018-11-21 00:06] VITALS: BP 112/55
[2018-11-21 04:00] VITALS: BP 114/72
[2018-11-21 05:06] LABS: HEMOGLOBIN 9.7 gm/dL (12.0-15.0); MCH 29.5 pg (26.0-34.0); MCHC 32.2 g/dL (28.0-37.0); MCV 91.6 fL (80.0-100.0); RBC 3.27 mil/uL (4.20-5.00); RDW-CV 14.8 % (10.5-14.5)
[2018-11-21 05:23] LABS: ALBUMIN 2.2 g/dL (3.4-5.0); CREATININE 0.9 mg/dL (0.6-1.3); MAGNESIUM 1.8 mg/dL (1.8-2.4); PHOSPHORUS* 2.1 mg/dL (2.5-4.9); POTASSIUM 3.2 mmol/L (3.5-5.1); TOTAL BILIRUBIN 0.3 mg/dL (<0.1-1.0); TOTAL PROTEIN 4.5 g/dL (6.4-8.2)
--- NOTE | 2018-11-21 05:51 | NUR ---
PATIENT PARTIALLY PROGRESSING TOWARDS GOALS: ABDOMINAL AND BACK PAIN MANAGED WITH MEDICATIONS PER MAR AND RELAXATION. PATIENT DENIES NAUSEA. NG TUBE REMAINS CLAMPED. NO BOWEL MOVEMENTS THIS SHIFT. INCONTINENT OF URINE AT TIMES. VSS ON 3L O2 NC. CALL LIGHT WITHIN REACH
[2018-11-21 08:00] VITALS: BP 103/47
[2018-11-21 11:29] VITALS: BP 92/42
[2018-11-21 12:34] LABS: CALCIUM 6.2 mg/dL (8.5-10.1); CREATININE 0.9 mg/dL (0.6-1.3); POTASSIUM 3.2 mmol/L (3.5-5.1)
--- NOTE | 2018-11-21 13:20 | NUR ---
ASSUMED CARE OF PATIENT THIS AM AT 0730. PATIENT IS SLEEPING OFF AND ON BUT IS ORIENTED X 4. FORGETFUL AT TIMES. POTASSIUM IS 3.2 THIS AFTERNOON. REPLACEMENT ORDERED AND STARTED. TELE SHOWS NSR. O2 SATS ARE 99 TO 100% NG TUBE WAS CLAMPED. DISCONTINUED PER GI. PATIENT IS C/O FREQUENT LOOSE STOOLS. SHE HAS BEEN UP TO THE BSC OFTEN. IV FLUIDS CONTINUED AND FSBS MONITORED. PATIENT C/O PAIN AND ANXIETY OFF AND ON TODAY SHE HAS BEEN MEDICATED X 2 SO FAR TODAY. PATIENT STATED PAIN IS BEEING CONTROLLED. DIET ADVANCED TO FULL LIQUID. NO C/O NAUSEA. WILL CONTINUE TO MONITOR LABS AND COMFORT.
[2018-11-21 16:15] VITALS: BP 138/51
--- NOTE | 2018-11-21 16:38 | NUR ---
SW met with pt to complete initial assessment, introduce self, and SW role. Pt alert, oriented, pleasant. Pt lives at home with her . Dr Walker explained to SW that pt 's sister is having an important surgery on Wednesday (tomorrow) and pt might not be ready to dc until Wednesday or since pt NG tube just removed, etc. Pt is current with [facility] services. Pt has oxygen at home and other DME: [facility] larsen, RW. SW to continue to follow to assist with safe dc planning.
[2018-11-21 20:00] VITALS: BP 151/67
[2018-11-22] VITALS (7 sets, daily range): BP systolic 105–156; BP diastolic 58–93
[2018-11-22 02:06] LABS: GLYCOHEMOGLOBIN (HGB A1C) 4.8 % (4.8-5.6)
[2018-11-22 05:19] LABS: ABSOLUTE EOSINOPHILS 0.2 thou/uL (0.0-0.7); ABSOLUTE LYMPHOCYTES 0.5 thou/uL (0.8-5.3); ABSOLUTE MONOCYTES 0.3 thou/uL (0.0-1.2); BASOPHILS 0.3 %; EOSINOPHILS 6.4 %; HEMATOCRIT 26.4 % (37.0-47.0); HEMOGLOBIN 8.6 gm/dL (12.0-15.0); LYMPHOCYTES 16.1 %; MCH 29.8 pg (26.0-34.0); MCHC 32.6 g/dL (28.0-37.0); MCV 91.4 fL (80.0-100.0); MONOCYTES 10.8 %; MPV 8.4 fl. (7.2-11.1); NUCLEATED RBCS 0 /100WBC; PLATELET COUNT* 170 thou/uL (150-400); POLYS 66.4 %; RBC 2.88 mil/uL (4.20-5.00); RDW-CV 14.7 % (10.5-14.5)
--- NOTE | 2018-11-22 05:24 | NUR ---
PT IS A&O X4, MAINTAIN O2 SAT ON 3L VIA NC. UP X1 ASSIST PT IS A FALL RISK COMMODE AT BEDSIDE. FULL LIQUID DIET TOLERATING WELL. NO C/O N/V. PAIN RATED 6/10 WITH PARTIAL RELIEF WITH MEDICATION. VS ARE STABLE, PT CURRENTLY ASLEEP IN BED, CALL LIGHT WITHIN REACH, BED ALARM IN PLACE. ALL NEEDS HAVE BEEN MET AT THIS TIME.
[2018-11-22 05:33] LABS: ALBUMIN 1.9 g/dL (3.4-5.0); CALCIUM 6.6 mg/dL (8.5-10.1); CREATININE 0.7 mg/dL (0.6-1.3); POTASSIUM 3.6 mmol/L (3.5-5.1); TOTAL BILIRUBIN 0.3 mg/dL (<0.1-1.0)
[2018-11-22 06:34] LABS: MAGNESIUM 1.5 mg/dL (1.8-2.4)
[2018-11-22 11:54] LABS: % SATURATION 19 % (20-39); IRON 34 ug/dL (50-175)
--- NOTE | 2018-11-22 14:23 | NUR ---
I HAVE REVIEWED THE STUDENT'S CHARTING.
[2018-11-23 04:00] VITALS: BP 115/44
--- NOTE | 2018-11-23 05:00 | NUR ---
A&O X3, MAINTAINING SATS ON 4L VIA NC. UP WITH X1 ASSIST, INCREASE ACTIVITY TOLERATED. C/O NAUSEA WITH VOMITING RELIEVED WITH MEDICATION. C/O PAIN WITH PARTIAL RELIEF WITH MEDICATION. PT HAD C/O SOB WITH MINIMAL ACTIVITY, UNIMPORVED WITH BREATHING TX, CONTACTED PHYISIAN RECIEVED ORDER FOR INCENTIVE SPIROMETER, EDUCATED PT ON USE, PT VERBALIZED UNDERSTANDING AND DEMOSTATES PROPER USE. CALL LIGHT WITHIN REACH.
[2018-11-23 05:19] LABS: ABSOLUTE EOSINOPHILS 0.3 thou/uL (0.0-0.7); ABSOLUTE LYMPHOCYTES 0.6 thou/uL (0.8-5.3); ABSOLUTE MONOCYTES 0.4 thou/uL (0.0-1.2); BASOPHILS 0.3 %; EOSINOPHILS 9.4 %; HEMATOCRIT 28.4 % (37.0-47.0); HEMOGLOBIN 9.2 gm/dL (12.0-15.0); LYMPHOCYTES 18.8 %; MCH 29.6 pg (26.0-34.0); MCHC 32.5 g/dL (28.0-37.0); MCV 91.1 fL (80.0-100.0); MONOCYTES 11.2 %; MPV 8.2 fl. (7.2-11.1); NUCLEATED RBCS 0 /100WBC; PLATELET COUNT* 207 thou/uL (150-400); POLYS 60.3 %; RBC 3.12 mil/uL (4.20-5.00); RDW-CV 15.2 % (10.5-14.5); WBC 3.3 thou/uL (4.0-11.0)
[2018-11-23 05:49] LABS: CREATININE 0.8 mg/dL (0.6-1.3); MAGNESIUM 1.4 mg/dL (1.8-2.4); PHOSPHORUS* 2.2 mg/dL (2.5-4.9); POTASSIUM 4.3 mmol/L (3.5-5.1)
[2018-11-23 08:15] VITALS: BP 116/70
[2018-11-23 08:23] VITALS: BP 116/70
[2018-11-23 09:31] LABS: URINE BILIRUBIN NEGATIVE (Negative); URINE BLOOD TRACE (Negative); URINE CLARITY CLEAR; URINE COLOR YELLOW; URINE GLUCOSE-RANDOM NEGATIVE (Negative); URINE KETONES NEGATIVE (Negative); URINE LEUKOCYTES-REFLEX 1+ (Negative); URINE NITRITE-REFLEX NEGATIVE (Negative); URINE PROTEIN NEGATIVE (Negative); URINE UROBILINOGEN 0.2 E.U./dl (0.2-1.0)
[2018-11-23 09:39] LABS: BACTERIA-REFLEX 1-9 Few /HPF (None Seen); CASTS None Seen /LPF (None Seen); CRYSTALS None Seen /LPF (None Seen); MUCUS None Seen strn/LPF (None Seen); SQUAMOUS 0-3 Few /LPF (0-3); URINE RBC 0-2 Rare /HPF (0-2); URINE WBC-REFLEX 0-5 Rare /HPF (0-5)
[2018-11-23 11:35] VITALS: BP 120/72
[2018-11-23 15:39] VITALS: BP 146/70
[2018-11-23 20:15] VITALS: BP 116/59
[2018-11-24] VITALS: BP 134/47
[2018-11-24 04:00] VITALS: BP 133/46
[2018-11-24 05:07] LABS: CALCIUM 7.8 mg/dL (8.5-10.1); CREATININE 0.8 mg/dL (0.6-1.3); MAGNESIUM 1.8 mg/dL (1.8-2.4); PHOSPHORUS* 2.6 mg/dL (2.5-4.9); POTASSIUM 4.8 mmol/L (3.5-5.1)
--- NOTE | 2018-11-24 05:22 | NUR ---
ASSUMED PATIENT CARE AT 1900. PATIENT ALERT AND ORIENTED TIMES FOUR. ABLE TO MOVE IN BED INDEPENDENTLY. REMAINS ON 4L VIA NC. REFUSES TO AMBULATE SHE SAYS THAT SHE GETS TOO SHORT OF BREATH WITH AMBULATION. COMPLAINTS OF PAIN,CHRONIC. CONTROLLED WITH ORAL MEDICATIONS. ELECTRONIC INTELLIGENCE OFFICER AND HOURLY ROUNDING COMPLETED DOCUMENTED.
[2018-11-24 07:40] VITALS: BP 159/80
[2018-11-24 11:24] VITALS: BP 140/51
--- NOTE | 2018-11-24 12:28 | NUR ---
CONTINUE TO FOLLOW. MET WITH PT TO DISCUSS DC PLANS. SHE STATES SHE PLANS TO RETURN HOME WITH [facility] AND [facility]. SHE FEELS THEY CAN MANAGE. ENCOURAGED PT TO GET UP OOB TODAY AND USE IS MORE. DISCUSSED HER CANCER AND PALLIATIVE CARE, SHE WANTS TO KNOW MORE ABOUT IT. SET UP INFO VISIT WITH [facility] FOR 1PM. REF FAXED TO THEM. TALKED WITH PT ABOUT QUESTIONS TO ASK HER ONCOLOGIST AND ANSWERED QUESTIONS. SUPPORT GIVEN
[2018-11-24 17:28] VITALS: BP 143/43
--- NOTE | 2018-11-24 19:00 | NUR ---
PATIENT VISITED WITH LEISA FROM [facility] ABOUT SERVICES OFFERED POST [place]. PATIENT HAS SIGNED ON WITH [facility]. ORDERS FOR PALLIATIVE CARE CAN BE FAXED TO [facility] AT [phone] AT [place].
[2018-11-24 20:00] VITALS: BP 142/55
[2018-11-25] VITALS (7 sets, daily range): BP systolic 98–150; BP diastolic 39–73
--- NOTE | 2018-11-25 04:30 | NUR ---
ASSUMED PATIENT CARE AT 1900. PATIENT ALERT AND ORIENTED TIMES FOUR. ACCESSED PORT PATENT TO FLUSHES AND BLOOD DRAWS. CHRONIC COMPLAINTS OF PAIN, CONTROLLED WITH ORAL MEDICATION. ABLE TO GET SELF OUT OF BED SEVERAL TIMES LAST NIGHT TO USE THE BEDSIDE COMMODE. TEMPER MILL ROLLER AND HOURLY ROUNDING COMPLETED CHARTED.
[2018-11-25 05:07] LABS: CALCIUM 8.4 mg/dL (8.5-10.1); MAGNESIUM 1.6 mg/dL (1.8-2.4); POTASSIUM 4.4 mmol/L (3.5-5.1)
[2018-11-25 05:09] LABS: ABSOLUTE LYMPHOCYTES 0.6 thou/uL (0.8-5.3); ABSOLUTE MONOCYTES 0.6 thou/uL (0.0-1.2); ABSOLUTE NEUTROPHILS 4.5 thou/uL (1.6-8.1); BASOPHILS 0.7 %; EOSINOPHILS 0.1 %; HEMATOCRIT 27.7 % (37.0-47.0); HEMOGLOBIN 8.9 gm/dL (12.0-15.0); MCHC 32.2 g/dL (28.0-37.0); MCV 90.2 fL (80.0-100.0); MONOCYTES 9.9 %; MPV 8.6 fl. (7.2-11.1); NUCLEATED RBCS 0 /100WBC; PLATELET COUNT* 241 thou/uL (150-400); POLYS 79.3 %; RBC 3.07 mil/uL (4.20-5.00); RDW-CV 14.6 % (10.5-14.5); WBC 5.6 thou/uL (4.0-11.0)
--- NOTE | 2018-11-25 09:00 | NUR ---
ASSUMED CARE AFTER REPORT APPROX 0730. OX4, ABLE TO EXPRESS NEEDS TO STAFF. ATTACHER IN PLACE, SR 77. O2 SATS 96% 4L NC. PATIENT UP OCCASIONALLY TO BSC, USES BEDPAN AT OTHER TIMES. C/O PAIN AND ANXIETY. PATIENT STATES, "IT WORKS MUCH BETTER WHEN I GET MY XANAX AND PAIN MED AT THE SAME TIME. MY PAIN IS SO BAD." EDUCATION GIVEN FOR PAIN ADJUNCTS SUCH DISTRACTION, IMAGERY, DEEP BREATHING. PATIENT AGREEABLE TO TRY THESE ADJUNCTS. PRN MEDS GIVEN PER MAY. ASSESSMENT DOCUMENTED. CALL LIGHT WITHIN REACH. HOURLY ROUNDING FOR SAFETY AND PATIENT NEEDS.
--- NOTE | 2018-11-25 15:35 | NUR ---
CONTINUE TO FOLLOW. MET WITH PT AND SPOUSE TO DISCUSS DC PLAN. PT STATES FEELING MUCH BETTER TODAY, POSSIBLE DC TOMORROW PER . PT PLANS TO RETURN HOME AT DC WITH [facility] AND [facility]. BOTH AGENIES WILL NEED CALLS AND DC ORDERS FAXED TO THEM. PT HAS ALL EQUIPMENT AT HOME. [facility] [phone] FAX [phone] [facility] [phone] FAX [phone]
[2018-11-26] VITALS (7 sets, daily range): BP systolic 103–143; BP diastolic 35–82
[2018-11-26 03:06] LABS: ABSOLUTE EOSINOPHILS 0.1 thou/uL (0.0-0.7); ABSOLUTE LYMPHOCYTES 0.8 thou/uL (0.8-5.3); ABSOLUTE MONOCYTES 0.6 thou/uL (0.0-1.2); ABSOLUTE NEUTROPHILS 3.4 thou/uL (1.6-8.1); BASOPHILS 0.4 %; EOSINOPHILS 1.6 %; HEMATOCRIT 28.1 % (37.0-47.0); HEMOGLOBIN 9.1 gm/dL (12.0-15.0); LYMPHOCYTES 16.2 %; MCHC 32.4 g/dL (28.0-37.0); MCV 89.5 fL (80.0-100.0); MONOCYTES 12.8 %; MPV 8.1 fl. (7.2-11.1); NUCLEATED RBCS 0 /100WBC; PLATELET COUNT* 259 thou/uL (150-400); RBC 3.14 mil/uL (4.20-5.00); RDW-CV 14.5 % (10.5-14.5); WBC 4.9 thou/uL (4.0-11.0)
[2018-11-26 03:15] LABS: CALCIUM 8.8 mg/dL (8.5-10.1)
[2018-11-26] MEDS ORDERED: IRON325 PO (15:37)
[2018-11-26] MEDS ORDERED: THERA M PLUS T1 EAC2 PO (15:37)
[2018-11-26] MEDS ORDERED: DOK PLUS TABLE1 EACH PO (15:37)
[2018-11-26] MEDS ORDERED: VITAMIN D1000 UNI1 PO (15:37)
[2018-11-26] MEDS ORDERED: FOLIC ACID1 MG PO (15:37)
[2018-11-26] MEDS ORDERED: LEVAQUIN 750 M750 MG PO (15:37)
[2018-11-26] MEDS ORDERED: PREDNISONE 20 M20 MG PO (15:37)
--- NOTE | 2018-11-26 16:04 | NUR ---
Pt discharging to home today. Faxed HH orders to [facility]. Faxed palliative care orders to [facility].
[2018-11-26] MEDS ORDERED: LOMOTIL TABLET1 EACH PO (16:21)
[2018-11-26] MEDS ORDERED: ALKA-SELTZER P1 EACH PO (16:21)
--- NOTE | 2018-11-26 17:46 | NUR ---
PT DISCHARGE INSTRUCTIONS REVIEWED WITH PT AND . ALL QUESTIONS ANSWERED. PORT A CATH PACKED WITH HEPARIN AND DISCONTINUED GEIGER NEEDLE. TELEMETRY WAS DISCONTINUED. PRESCRIPTIONS AND EDUCATION MATERIALS GIVEN. ALL BELONGINGS, INCLUDING HOME MEDICATION SENT WITH PT.
--- NOTE | 2018-11-28 16:06 | PATH ---
[address] [address] PATHOLOGY RPT PROCEDURE Name: ALEIDA DICKERSON Room: [address] IN .R.#: [id number] Admission: 11/18/18 Date of : 52 Discharge: 11/26/18 Report #: [id number] Path Case #: [id number] [facility] Accession Number: [id number] . 01 Material submitted: . stomach - GASTRIC BIOPSIES FOR H. PYLORI . 01 Clinical history: . None provided. . 02 Diagnosis: Gastric biopsies: - Mild chronic gastritis suggesting reactive gastropathy (chemical gastritis), negative for Helicobacter pylori organisms and dysplasia. (WANDA:beverly; 11/28/2018) . Special stain: H. pylori immuno MBR 11/28/2018 1206 Local . 02 Electronically signed: . Amilcar Gonsalez MD, Pathologist NPI- [id number] . 01 Gross description: . Received in formalin labeled "Aleida Dickerson, gastric biopsies for H. pylori" is a 0.4 x 0.3 x 0.2 cm singular fragment of steele-brown mucosa. The specimen is submitted in A1. ([facility]; 11/27/2018) [facility] 11/27/2018 1211 Local . 02 Pathologist provided ICD-10: K29.50 . 02 CPT . 812057, L12321 Specimen Comment: A courtesy copy of this report has been sent to Specimen Comment: [phone], , . Specimen Comment: Report sent to ,DR WU / DR LANCE Performed at: [address], [place] [id number] MD Gabriel Smith MD Phone: [phone] Performed at: 02 [facility] [address], [place], [place] [id number] MD Amilcar Gonsalez MD Phone: [phone]
== END 2018-11-26 17:49 | disposition home health service (06) | DRG 380 ==
LOC: M.ERS 17:52 → M.TBA-ER 20:58 → M.2W 20:58
PROVIDERS: Family Medicine; Internal Medicine; Nurse Practitioner Family; Surgery; ADMIT Internal Medicine
PROC: 0D9670Z Drainage of Stomach with Drainage Device, Via Natural or Artificial Opening (ICD-10-PCS; principal; 2018-11-19)
PROC: 30233N1 Transfusion of Nonautologous Red Blood Cells into Peripheral Vein, Percutaneous Approach (ICD-10-PCS; principal; 2018-11-19)
PROC: 0D768ZZ Dilation of Stomach, Via Natural or Artificial Opening Endoscopic (ICD-10-PCS; 2018-11-25)
PROC: 0DB68ZX Excision of Stomach, Via Natural or Artificial Opening Endoscopic, Diagnostic (ICD-10-PCS; 2018-11-25)
DX: K31.1 Adult hypertrophic pyloric stenosis (principal); E43 Unspecified severe protein-calorie malnutrition; J15.6 Pneumonia due to other Gram-negative bacteria; J96.21 Acute and chronic respiratory failure with hypoxia; K56.609 Unspecified intestinal obstruction, unspecified as to partial versus complete obstruction; C79.51 Secondary malignant neoplasm of bone; C34.90 Malignant neoplasm of unspecified part of unspecified bronchus or lung; N17.9 Acute kidney failure, unspecified; Z68.1 Body mass index [BMI] 19.9 or less, adult; J44.0 Chronic obstructive pulmonary disease with (acute) lower respiratory infection; K25.9 Gastric ulcer, unspecified as acute or chronic, without hemorrhage or perforation; F32.9 Major depressive disorder, single episode, unspecified; E78.00 Pure hypercholesterolemia, unspecified; R13.10 Dysphagia, unspecified; E78.5 Hyperlipidemia, unspecified; G89.29 Other chronic pain; F41.9 Anxiety disorder, unspecified; E87.6 Hypokalemia; K59.09 Other constipation; K21.9 Gastro-esophageal reflux disease without esophagitis; I12.9 Hypertensive chronic kidney disease with stage 1 through stage 4 chronic kidney disease, or unspecified chronic kidney disease; E53.8 Deficiency of other specified B group vitamins; T40.2X5A Adverse effect of other opioids, initial encounter; E83.39 Other disorders of phosphorus metabolism; E83.42 Hypomagnesemia; D50.9 Iron deficiency anemia, unspecified; D63.8 Anemia in other chronic diseases classified elsewhere; Z85.118 Personal history of other malignant neoplasm of bronchus and lung; Z79.891 Long term (current) use of opiate analgesic; Z88.6 Allergy status to analgesic agent; Z88.1 Allergy status to other antibiotic agents; Z87.891 Personal history of nicotine dependence; Z90.49 Acquired absence of other specified parts of digestive tract; Z90.710 Acquired absence of both cervix and uterus; Z99.81 Dependence on supplemental oxygen; Z87.11 Personal history of peptic ulcer disease; Y92.89 Other specified places as the place of occurrence of the external cause

== ENCOUNTER 2018-12-05 18:01 | Inpatient (IN) | payer MEDICARE, OTHER ==
[~2018-12-05] VITALS: Ht 157.5 cm; Wt 39.0 kg
[~2018-12-05 18:01] MED LIST changes: +ALKA-SELTZER P1 EACH PO; +DOK PLUS TABLE1 EACH PO; +FOLIC ACID1 MG PO; +LEVAQUIN 750 M750 MG PO; +THERA M PLUS T1 EAC2 PO; +VITAMIN D1000 UNI1 PO
[2018-12-05 19:30] VITALS: BP 110/49
[2018-12-05 22:09] LABS: HEMATOCRIT 29.4 % (37.0-47.0); HEMOGLOBIN 9.6 gm/dL (12.0-15.0); MCH 29.1 pg (26.0-34.0); MCHC 32.5 g/dL (28.0-37.0); MCV 89.6 fL (80.0-100.0); MPV 8.1 fl. (7.2-11.1); RBC 3.28 mil/uL (4.20-5.00); RDW-CV 14.8 % (10.5-14.5); WBC 6.4 thou/uL (4.0-11.0)
[2018-12-05 22:26] LABS: ALBUMIN 3.5 g/dL (3.4-5.0); CALCIUM 8.8 mg/dL (8.5-10.1); CREATININE 1.3 mg/dL (0.6-1.3); POTASSIUM 3.1 mmol/L (3.5-5.1); TOTAL BILIRUBIN 0.7 mg/dL (<0.1-1.0)
[2018-12-06 05:32] LABS: ABSOLUTE EOSINOPHILS 0.1 thou/uL (0.0-0.7); ABSOLUTE LYMPHOCYTES 0.6 thou/uL (0.8-5.3); ABSOLUTE MONOCYTES 0.4 thou/uL (0.0-1.2); ABSOLUTE NEUTROPHILS 2.8 thou/uL (1.6-8.1); BASOPHILS 0.3 %; EOSINOPHILS 2.6 %; HEMATOCRIT 25.7 % (37.0-47.0); HEMOGLOBIN 8.4 gm/dL (12.0-15.0); LYMPHOCYTES 15.5 %; MCH 29.6 pg (26.0-34.0); MCHC 32.6 g/dL (28.0-37.0); MCV 90.7 fL (80.0-100.0); MONOCYTES 9.2 %; MPV 8.2 fl. (7.2-11.1); NUCLEATED RBCS 0 /100WBC; PLATELET COUNT* 199 thou/uL (150-400); POLYS 72.4 %; RBC 2.83 mil/uL (4.20-5.00); RDW-CV 14.8 % (10.5-14.5); WBC 3.9 thou/uL (4.0-11.0)
[2018-12-06 05:38] LABS: CALCIUM 7.9 mg/dL (8.5-10.1); CREATININE 1.1 mg/dL (0.6-1.3); POTASSIUM 3.4 mmol/L (3.5-5.1)
[2018-12-06 07:45] VITALS: BP 77/36
[2018-12-06 08:30] VITALS: BP 99/32
[2018-12-06 11:02] VITALS: BP 77/36
[2018-12-06 16:00] VITALS: BP 103/49
[2018-12-06 20:00] VITALS: BP 87/37
[2018-12-07 04:48] LABS: ABSOLUTE EOSINOPHILS 0.1 thou/uL (0.0-0.7); ABSOLUTE LYMPHOCYTES 0.5 thou/uL (0.8-5.3); ABSOLUTE MONOCYTES 0.3 thou/uL (0.0-1.2); ABSOLUTE NEUTROPHILS 1.7 thou/uL (1.6-8.1); BASOPHILS 0.4 %; EOSINOPHILS 5.2 %; HEMATOCRIT 23.9 % (37.0-47.0); HEMOGLOBIN 7.7 gm/dL (12.0-15.0); LYMPHOCYTES 19.3 %; MCH 29.2 pg (26.0-34.0); MCHC 32.1 g/dL (28.0-37.0); MCV 91.2 fL (80.0-100.0); MONOCYTES 10.8 %; MPV 7.8 fl. (7.2-11.1); NUCLEATED RBCS 0 /100WBC; PLATELET COUNT* 147 thou/uL (150-400); POLYS 64.3 %; RBC 2.63 mil/uL (4.20-5.00); RDW-CV 14.8 % (10.5-14.5); WBC 2.6 thou/uL (4.0-11.0)
[2018-12-07 05:02] LABS: CALCIUM 6.9 mg/dL (8.5-10.1); CREATININE 0.9 mg/dL (0.6-1.3); MAGNESIUM 1.8 mg/dL (1.8-2.4); PHOSPHORUS* 2.6 mg/dL (2.5-4.9); POTASSIUM 4.3 mmol/L (3.5-5.1)
[2018-12-07 07:40] VITALS: BP 82/33
[2018-12-07 16:59] VITALS: BP 90/40
[2018-12-07 20:10] VITALS: BP 96/44
[2018-12-08 09:15] VITALS: BP 106/53
[2018-12-08 16:00] VITALS: BP 89/53
[2018-12-08] MEDS ORDERED: MIRALAX17 GM PO (17:27)
[2018-12-08] MEDS ORDERED: RELISTOR150 MG PO (17:27)
[2018-12-08] MEDS ORDERED: DOK PLUS TABLE1 EACH PO (17:27)
[2018-12-08 17:46] VITALS: BP 89/53
== END 2018-12-08 18:35 | disposition home or self-care (01) | DRG 388 ==
LOC: M.ORTHSURG 18:01
PROVIDERS: Surgery; ADMIT Internal Medicine
DX: K56.609 Unspecified intestinal obstruction, unspecified as to partial versus complete obstruction (principal); E43 Unspecified severe protein-calorie malnutrition; J96.10 Chronic respiratory failure, unspecified whether with hypoxia or hypercapnia; Z68.1 Body mass index [BMI] 19.9 or less, adult; G89.29 Other chronic pain; K21.9 Gastro-esophageal reflux disease without esophagitis; F41.9 Anxiety disorder, unspecified; F32.9 Major depressive disorder, single episode, unspecified; I95.89 Other hypotension; K59.00 Constipation, unspecified; E78.5 Hyperlipidemia, unspecified; Z79.891 Long term (current) use of opiate analgesic; Z87.891 Personal history of nicotine dependence; Z88.6 Allergy status to analgesic agent; Z88.1 Allergy status to other antibiotic agents; Z85.118 Personal history of other malignant neoplasm of bronchus and lung; Z87.11 Personal history of peptic ulcer disease; Z90.49 Acquired absence of other specified parts of digestive tract; Z90.710 Acquired absence of both cervix and uterus

== ENCOUNTER 2019-03-17 16:49 | Inpatient (IN) | payer MEDICARE, OTHER ==
[~2019-03-17] VITALS: Ht 154.9 cm; Wt 36.3 kg
[~2019-03-17 16:49] MED LIST changes: +MIRALAX17 GM PO; +RELISTOR150 MG PO
--- NOTE | 2019-03-17 19:24 | NUR ---
PT DIRECT ADMIT AT 1730, PT ALERT AND ORIENTED, UP WITH ASSIST OF 1, TAKING FOOD AND FLUIDS WELL, BENNY CATH TO RIGHT UPPER CHEST, C/O CHEST PAIN FROM COUGHING, HX OF INCONTINENCE AND WEARS BRIEF, ASSESSMENT COMPLETE, PT NOT SURE OF MEDICATIONS AND WILL BRING MED LIST IN TOMMOROW, HOURLY ROUNDING COMPLETED, WILL CONTINUE TO MONITOR.
[2019-03-17 19:38] VITALS: BP 118/77
[2019-03-17 20:32] VITALS: BP 146/49
--- NOTE | 2019-03-18 05:04 | NUR ---
ASSUMED CARE OF PT 03/17/19 AT APPROX 1930, PT A&OX4, PT ON 4L NC, R-CHEST INPLANTED PORT ACCESSED - WELL TOLERATED, PT REQUESTED PAIN MED FOR HEADACHE - PHYSICIAN CONTACTED, ORDER RECEIVED FOR JUAN R DODGE, WILL CONTINUE TO MONITOR.
[2019-03-18 07:06] LABS: HEMATOCRIT 26.3 % (37.0-47.0); MCH 30.9 pg (26.0-34.0); MCHC 34.1 g/dL (28.0-37.0); MCV 90.6 fL (80.0-100.0); RBC 2.91 mil/uL (4.20-5.00); RDW-CV 14.4 % (10.5-14.5); WBC 5.4 thou/uL (4.0-11.0)
[2019-03-18 07:14] LABS: ALBUMIN 3.3 g/dL (3.4-5.0); CALCIUM 8.6 mg/dL (8.5-10.1); CREATININE 1.2 mg/dL (0.6-1.3); POTASSIUM 4.6 mmol/L (3.5-5.1); TOTAL BILIRUBIN 0.2 mg/dL (<0.1-1.0); TOTAL PROTEIN 6.3 g/dL (6.4-8.2)
[2019-03-18 16:00] VITALS: BP 108/40
--- NOTE | 2019-03-18 17:54 | NUR ---
VSS THIS SHIFT. DISCUSSED WITH PT REGARDING CODE STATUS AND SHE STATED THAT SHE WANTED TO BE FULL CODE AT THIS TIME AND THAT HER WAS HER DPOA AND HE IS AWARE OF HER WISHES. FULL CODE ENTERED OKAYED BY DR PERES. PT TAKING ANTI-ANXIETY MEDICATIONS, PAIN MEDICATIONS, AND HAD FENTANYL PATCH REMOVED AND NEW ONE APPLIED THIS SHIFT. PT TOLERATING REG DIET AND O2 PER NC AT 4L AT THIS TIME. PT HAS PPN RUNNING THROUGH R CHEST PORT. PT [facility] [place] [facility] [place]NS AT THIS TIME, AND SHE CALLS OUT FOR ALL OTHER AMBULATORY NEEDS. NO CONCERNS NOTED AT THIS TIME.
[2019-03-18 19:58] VITALS: BP 101/52
--- NOTE | 2019-03-19 04:51 | NUR ---
ASSUMED CARE OF PT 03/18/18 AT APPROX 1930, PT A&OX4, PT ON 3L NC, PAIN AND ANXIETY MEDS REQUESTED AND GIVEN ORDERED, VSS, WILL CONTINUE TO MONITOR.
[2019-03-19 07:30] VITALS: BP 101/62
[2019-03-19 12:48] LABS: CREATININE 1.1 mg/dL (0.6-1.3); MAGNESIUM 1.4 mg/dL (1.8-2.4); PHOSPHORUS* 3.1 mg/dL (2.5-4.9); POTASSIUM 4.2 mmol/L (3.5-5.1)
[2019-03-19 14:04] LABS: URINE BILIRUBIN NEGATIVE (Negative); URINE BLOOD NEGATIVE (Negative); URINE CLARITY CLEAR; URINE COLOR YELLOW; URINE GLUCOSE-RANDOM NEGATIVE (Negative); URINE KETONES NEGATIVE (Negative); URINE LEUKOCYTES NEGATIVE (Negative); URINE NITRITE NEGATIVE (Negative); URINE PROTEIN NEGATIVE (Negative); URINE UROBILINOGEN 0.2 E.U./dl (0.2-1.0)
[2019-03-19 21:24] VITALS: BP 86/68
--- NOTE | 2019-03-20 07:46 | NUR ---
Pt requested increased frequency for pain medication order. Paged Dr. Andujar, orders received. Pt reports she slept well overnight "for the first time in quite a while." Will continue to monitor.
[2019-03-20 10:27] VITALS: BP 133/41
[2019-03-20 17:09] VITALS: BP 91/37
--- NOTE | 2019-03-20 18:40 | NUR ---
PATIENT REMAINS NAUSEATED. PAIN CONTROLLED WITH OXYCODONE.
[2019-03-20 20:15] VITALS: BP 94/24
[2019-03-20 22:10] VITALS: BP 109/56
--- NOTE | 2019-03-21 06:50 | NUR ---
PATIENT HAS SLEPT OFF AND ON DURING THE NIGHT WITH PERIODS OF RESTLESSNESS. VSS ON 4L 02 VIA NASAL CANNULA, ALTHOUGHT BP SLIGHTLY LOW. MEDICATIONS GIVEN ORDERED AND CHARTED AND ASSESSMENT CHARTED. PATIENT REFUSED BREATHING TREATMENTS DURING THE NIGHT PER RESPIRATORY. RIGHT CHEST PORT-PPN @ 50ML/HR. PATIENT INSTRUCTED TO USE CALL LIGHT WHEN NEEDING ASSISTANCE. HOURLY ROUNDS MADE. WILL CONTINUE WITH PLAN OF CARE AND NURSING TO MONITOR.
--- NOTE | 2019-03-21 07:58 | CON ---
[address] [address] CONSULTATION Name: ROBLESYASMIN Cande Room: [address] IN M.R.#: [id number] Admission: 03/17/19 Attend Phys: Ana Rosa Sarabia Discharge: Date of : 52 Report #: [id number] THIS REPORT FOR: //name// CC: Reyna Spaulding DATE OF SERVICE: 03/20/2019 HISTORY OF PRESENT ILLNESS: A 68-year-old female who has been diagnosed with metastatic non-small cell lung cancer at [facility]. Source of information is patient. 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 She stated that she has been on Tarceva and she was switched to a new pill. Her disease has been stable almost for the last 2 years. The patient was admitted to [facility] through the Emergency Room due to generalized weakness. In addition to that, she had symptoms of COPD exacerbation. The patient continues to lose weight. REVIEW OF SYSTEMS: All systems were reviewed. It was negative except the above. PAST MEDICAL HISTORY: Metastatic non-small cell lung cancer and COPD. MEDICATIONS: Per admission list. ALLERGIES: MORPHINE AND ERYTHROMYCIN. FAMILY HISTORY: Noncontributory. SOCIAL HISTORY: She is an ex-smoker. She quit more than one year ago. No alcohol or drug abuse. PHYSICAL EXAMINATION: VITAL SIGNS: Today, temperature is 36.7, pulse is 93, respirations 18, blood pressure is 86/68, and SpO2 was 100% on 4 liters. GENERAL: The patient was lying in bed. She was not in acute distress; however, she looked cachectic and tired. LUNGS: Decreased breathing sounds bilaterally. No wheezing. No crackles. ABDOMEN: Soft, nontender, and nondistended. Bowel sounds positive. CARDIOVASCULAR: Regular rate and rhythm. S1, S2 within normal limits. LABORATORY DATA: Today, WBC 5.4, hemoglobin 9.0, and platelets 142. Sodium is 136, potassium is 4.2, creatinine 1.1, glucose 169, calcium is 9.0, total bilirubin 0.2, AST 13, ALT is 18, and alkaline phosphatase is 51[place] [address] CONSULTATION Name: YASMIN ROBLES Room: [address]#: [id number] Admission: 03/17/19 Attend Phys: Ana Rosa Sarabia Discharge: Date of : 52 Report #: [id number] IMAGING: Chest x-ray showed no acute cardiopulmonary abnormalities. 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 Most for the last 2 years per the patient, her disease has been stable. At this point, I agree with current supportive care including IV fluids, replacing her electrolytes and tapering dose of steroids with empiric antibiotics. I would like to keep her on her current cancer care and follow up with Dr. Fuentes as an outpatient once discharged. Thank you for this kind consultation. <ELECTRONICALLY SIGNED> By: Radha Reno MD 03/21/19 0758 0748 [id number] Reno MD /nt
[2019-03-21 07:59] VITALS: BP 107/57
[2019-03-21] MEDS ORDERED: AUGMENTIN 875-1 EACH PO (13:49)
[2019-03-21] MEDS ORDERED: PREDNISONE 10 M10 MG PO (13:49)
[2019-03-21] MEDS ORDERED: PERCOCET PO (13:51)
[2019-03-21 14:21] VITALS: BP 107/57
--- NOTE | 2019-03-21 17:06 | NUR ---
PT DISCHARGED ABOUT 1540 TO HOME WITH HOME HEALTH. DISCHARGED BY WHEELCHAIR WITH NURSING STAFF AND . BENNY CATH HEPARIN LOCKED AND NEEDLE REMOVED. PT STABLE UPON DISCHARGE.
== END 2019-03-21 17:13 | disposition home health service (06) | DRG 190 ==
LOC: M.ORTHSURG 16:49
PROVIDERS: ADMIT Internal Medicine
DX: J44.1 Chronic obstructive pulmonary disease with (acute) exacerbation (principal); E43 Unspecified severe protein-calorie malnutrition; F11.20 Opioid dependence, uncomplicated; Z68.1 Body mass index [BMI] 19.9 or less, adult; C34.90 Malignant neoplasm of unspecified part of unspecified bronchus or lung; C79.51 Secondary malignant neoplasm of bone; F32.9 Major depressive disorder, single episode, unspecified; E78.00 Pure hypercholesterolemia, unspecified; E86.0 Dehydration; K58.9 Irritable bowel syndrome, unspecified; E83.42 Hypomagnesemia; Z87.891 Personal history of nicotine dependence; Z88.1 Allergy status to other antibiotic agents; Z88.5 Allergy status to narcotic agent; Z79.899 Other long term (current) drug therapy; Z99.81 Dependence on supplemental oxygen

== ENCOUNTER 2019-04-21 11:37 | Inpatient (IN) | payer MEDICARE, OTHER ==
[~2019-04-21] VITALS: Ht 157.5 cm; Wt 81.2 kg
[~2019-04-21 11:37] MED LIST changes: +AUGMENTIN 875-1 EACH PO; +PREDNISONE 10 M10 MG PO
[2019-04-21 11:40] VITALS: BP 103/51
[2019-04-21 12:48] LABS: HEMATOCRIT 21.5 % (37.0-47.0); MCH 29.4 pg (26.0-34.0); MCHC 32.5 g/dL (28.0-37.0); MCV 90.4 fL (80.0-100.0); MPV 8.9 fl. (7.2-11.1); NUCLEATED RBCS 0 /100WBC; PLATELET COUNT* 197 thou/uL (150-400); RBC 2.38 mil/uL (4.20-5.00); RDW-CV 15.3 % (10.5-14.5); WBC 9.5 thou/uL (4.0-11.0)
[2019-04-21 13:03] LABS: CALCIUM 6.3 mg/dL (8.5-10.1); CREATININE 0.8 mg/dL (0.6-1.3)
[2019-04-21 13:05] LABS: APTT 22.4 Seconds (25.0-31.3); INR 1.1; PROTIME 11.6 Seconds (9.20-11.50)
[2019-04-21 13:12] LABS: ABSOLUTE LYMPHOCYTES 0.4 thou/uL (0.8-5.3); ABSOLUTE MONOCYTES 0.2 thou/uL (0.0-1.2); ABSOLUTE NEUTROPHILS 8.9 thou/uL (1.6-8.1); PLATELET ESTIMATE ADEQUATE
[2019-04-21 13:14] LABS: TOTAL BILIRUBIN 0.2 mg/dL (<0.1-1.0); TOTAL PROTEIN 4.7 g/dL (6.4-8.2)
[2019-04-21 18:43] VITALS: BP 117/46
[2019-04-21 19:00] VITALS: BP 118/62
[2019-04-21 22:46] VITALS: BP 107/57; BP 120/50; BP 134/64; BP 98/53
[2019-04-22 04:03] VITALS: BP 86/47
[2019-04-22 05:02] LABS: HEMATOCRIT 26.3 % (37.0-47.0); HEMOGLOBIN 8.8 gm/dL (12.0-15.0); MCH 29.9 pg (26.0-34.0); MCHC 33.6 g/dL (28.0-37.0); MCV 88.9 fL (80.0-100.0); MPV 9.1 fl. (7.2-11.1); RBC 2.96 mil/uL (4.20-5.00); RDW-CV 15.2 % (10.5-14.5); WBC 8.6 thou/uL (4.0-11.0)
[2019-04-22 05:29] LABS: CREATININE 0.8 mg/dL (0.6-1.3); MAGNESIUM 1.2 mg/dL (1.8-2.4); POTASSIUM 3.4 mmol/L (3.5-5.1)
[2019-04-22 05:38] LABS: CALCIUM 5.7 mg/dL (8.5-10.1)
[2019-04-22 08:00] VITALS: BP 97/53
[2019-04-22 12:14] VITALS: BP 91/44
[2019-04-22 15:55] VITALS: BP 99/47
[2019-04-22 20:00] VITALS: BP 98/50
[2019-04-22 21:22] LABS: % SATURATION 9 % (20-39); IRON 16 ug/dL (50-175)
[2019-04-23] VITALS (7 sets, daily range): BP systolic 83–135; BP diastolic 36–64
[2019-04-23 04:39] LABS: HEMATOCRIT 28.2 % (37.0-47.0); HEMOGLOBIN 9.2 gm/dL (12.0-15.0); MCH 29.4 pg (26.0-34.0); MCHC 32.8 g/dL (28.0-37.0); MCV 89.8 fL (80.0-100.0); MPV 8.7 fl. (7.2-11.1); RBC 3.14 mil/uL (4.20-5.00); RDW-CV 15.5 % (10.5-14.5); WBC 10.2 thou/uL (4.0-11.0)
[2019-04-23 04:56] LABS: CREATININE 0.7 mg/dL (0.6-1.3); MAGNESIUM 1.3 mg/dL (1.8-2.4)
[2019-04-24 06:30] LABS: HEMATOCRIT 25.8 % (37.0-47.0); HEMOGLOBIN 8.5 gm/dL (12.0-15.0); MCH 29.5 pg (26.0-34.0); MCV 89.4 fL (80.0-100.0); MPV 8.9 fl. (7.2-11.1); NUCLEATED RBCS 0 /100WBC; PLATELET COUNT* 224 thou/uL (150-400); RBC 2.88 mil/uL (4.20-5.00); RDW-CV 15.1 % (10.5-14.5); WBC 6.9 thou/uL (4.0-11.0)
[2019-04-24 06:43] LABS: ALBUMIN 1.7 g/dL (3.4-5.0); CREATININE 0.9 mg/dL (0.6-1.3); MAGNESIUM 2.2 mg/dL (1.8-2.4); POTASSIUM 3.8 mmol/L (3.5-5.1); TOTAL BILIRUBIN 0.2 mg/dL (<0.1-1.0); TOTAL PROTEIN 4.6 g/dL (6.4-8.2)
[2019-04-24 06:46] LABS: CALCIUM 5.7 mg/dL (8.5-10.1)
[2019-04-24 07:52] LABS: ABSOLUTE BASOPHILS 0.1 thou/uL (0.0-0.2); ABSOLUTE EOSINOPHILS 0.1 thou/uL (0.0-0.7); ABSOLUTE LYMPHOCYTES 0.4 thou/uL (0.8-5.3); ABSOLUTE MONOCYTES 0.1 thou/uL (0.0-1.2); ABSOLUTE NEUTROPHILS 6.1 thou/uL (1.6-8.1)
[2019-04-24 07:53] LABS: ANISOCYTOSIS 1+; PLATELET ESTIMATE ADEQUATE; POIKILOCYTOSIS 1+
[2019-04-24 08:00] VITALS: BP 136/58
[2019-04-24 12:00] VITALS: BP 101/43
[2019-04-24 16:00] VITALS: BP 91/33
[2019-04-24 19:45] VITALS: BP 114/38
[2019-04-25] VITALS: BP 77/39
[2019-04-25 00:05] VITALS: BP 89/45
[2019-04-25 04:00] VITALS: BP 105/46
[2019-04-25 06:12] LABS: ABSOLUTE EOSINOPHILS 0.2 thou/uL (0.0-0.7); ABSOLUTE LYMPHOCYTES 0.4 thou/uL (0.8-5.3); ABSOLUTE MONOCYTES 0.4 thou/uL (0.0-1.2); ABSOLUTE NEUTROPHILS 5.4 thou/uL (1.6-8.1); BASOPHILS 0.5 %; EOSINOPHILS 2.8 %; HEMATOCRIT 27.2 % (37.0-47.0); LYMPHOCYTES 6.3 %; MCH 29.7 pg (26.0-34.0); MCHC 33.1 g/dL (28.0-37.0); MCV 89.7 fL (80.0-100.0); MONOCYTES 6.3 %; NUCLEATED RBCS 0 /100WBC; PLATELET COUNT* 212 thou/uL (150-400); POLYS 84.1 %; RBC 3.03 mil/uL (4.20-5.00); RDW-CV 15.3 % (10.5-14.5); WBC 6.4 thou/uL (4.0-11.0)
[2019-04-25 06:38] LABS: ALBUMIN 1.8 g/dL (3.4-5.0); CALCIUM 6.4 mg/dL (8.5-10.1); CREATININE 0.8 mg/dL (0.6-1.3); POTASSIUM 3.7 mmol/L (3.5-5.1); TOTAL BILIRUBIN 0.1 mg/dL (<0.1-1.0); TOTAL PROTEIN 4.9 g/dL (6.4-8.2)
[2019-04-25 08:00] VITALS: BP 105/67
--- NOTE | 2019-04-25 09:20 | CON ---
[address] [address] CONSULTATION Name: YASMIN ROBLES Cande Room: [address] IN M.R.#: [id number] Admission: 04/21/19 Attend Phys: Festus Foster, Discharge: Date of : 52 Report #: [id number] THIS REPORT FOR: //name// cc: Angela Mcdaniel Maggie M. DO ~ THIS REPORT FOR: //name// CC: Angela Foster DATE OF SERVICE: 04/22/2019 REASON FOR CONSULTATION: History of lung cancer. HISTORY OF PRESENT ILLNESS: The patient is a very pleasant 68-year-old female who is admitted currently in the hospital with history of some diarrhea along with chest pain and discomfort and cough. The patient gives a history of having metastatic lung cancer diagnosed approximately 4-5 years ago. The patient says that she follows with Dr. Fuentes at [facility]. The patient gives a history of having had treatment with chemotherapy concurrently with radiation. The patient subsequently was started on an oral agent, which she is currently taking. The patient does not remember the name of the agent and does not have currently present with her. The patient had a chest x-ray upon presentation to the Emergency Room yesterday, which showed no evidence of patchy left basilar infiltrate consistent with pneumonitis or developing pneumonia. No evidence of pneumothorax or significant pleural effusion was seen. Chronic lung changes were seen. Her hemoglobin was found to be 7 g/dL in the hospital. Hematocrit was 21.5 and MCV was normal at 90.4. Platelets were 197 and WBC count of 9.5. The patient was given 1 unit of PRBCs. Her electrolytes were overall unremarkable except calcium level, which was found to be significantly decreased at 5.7 today. Ionized calcium level is currently pending. The patient also has a significantly low albumin level of 2.0 resulting in corrected calcium of 7.3. Her PT was mildly elevated at 11.6 as well with INR of 1.1. The patient was started on IV antibiotics including Zosyn. She also has been on pain medications for her chest discomfort. She does not complain of any headache, dizziness, nausea, vomiting, constipation, chest pain or palpitations otherwise. PAST MEDICAL HISTORY: 1. Anemia. 2. Chronic obstructive pulmonary disease. 3. Hypokalemia. 4. Metastatic lung cancer. 5. History of [place] [address] CONSULTATION Name: YASMIN ROBLES Room: [address]#: [id number] Admission: 04/21/19 Attend Phys: Festus Foster, Discharge: Date of : 52 Report #: [id number] 6. Syncope. 7. Protein-calorie malnutrition. 8. Depression. 9. Irritable bowel syndrome. 10. Chronic opiate dependence. FAMILY HISTORY: Mother had unknown type of cancer. No other family history of cancers or other hematologic disorders. PERSONAL HISTORY: The patient is a former smoker and quit more than 10 years ago. No history of recent smoking. No alcohol use or illicit drug use, otherwise recently. ALLERGIES: 1. MORPHINE 2. ERYTHROMYCIN. CURRENT MEDICATIONS: 1. Dilaudid 0.5 mg IV q. 6 hours as needed. 2. Zoloft 200 mg p.o. daily. 3. MiraLax 17 grams p.o. daily. 4. Multivitamins 1 tablet p.o. daily. 5. Folic acid 1 mg daily. 6. Cholecalciferol 1000 units p.o. daily. 7. Sodium phosphate as directed. 8. Potassium replacement as directed. 9. Magnesium oxide 400 mg p.o. q.i.d. as needed. 10. Zosyn 3.375 grams IV every 8 hours. 11. Carafate 1 gram p.o. q.a.c. and at bedtime. 12. Gabapentin 300 mg p.o. b.i.d. 13. Ferrous sulfate 325 mg p.o. at bedtime. 14. Lipitor 20 mg p.o. at bedtime. 15. Albuterol 2.5 mg inhalation q.i.d. 16. Budesonide 0.5 mg inhalation b.i.d. 17. Senokot as needed. 18. Percocet 2 tablets as needed. 19. Zofran 4 mg p.o. q.8 hours as needed. 20. Duragesic patch 75 mcg transdermally every 72 hours. 21. Diphenoxylate one tablet p.o. q.i.d. as needed. 22. Sodium chloride for IV hydration. REVIEW OF SYSTEMS: A 13-point review of systems obtained and is negative for any findings of those discussed in HPI. PHYSICAL EXAMINATION: VITAL SIGNS: Temperature today was 36.7 degrees centigrade, pulse was 71 beats [facility] [address] [place] [address] CONSULTATION Name: YASMIN ROBLES Room: [address] IN .R.#: [id number] Admission: 04/21/19 Attend Phys: Festus Foster, Discharge: Date of : 52 Report #: [id number] per minute, respiratory rate was 18 breaths per minute, blood pressure was 99/47 mmHg, pulse ox 94% on supplemental oxygen. GENERAL: Awake, alert and oriented x 3, no apparent distress. HEENT: Emaciated, malnourished appearing female. Anicteric/atraumatic. LYMPHATICS: No lymphadenopathy in the neck or supraclavicular areas. CHEST: Bronchial breathing bilaterally, but good air entry in all zones. Scattered crackles. CARDIOVASCULAR: Regular rate and rhythm. ABDOMEN: Soft, bowel sounds positive. MUSCULOSKELETAL: No significant arthropathy, gait not assessed. NEUROLOGIC: No evidence of any focal neurological deficit. INTEGUMENTARY: No evidence of rash or other skin changes. ASSESSMENT AND PLAN: The patient is a very pleasant 68-year-old female who gives a history of having lung cancer approximately 4-5 years ago, treated with chemoradiation and has been on "chemotherapy" tablet since then. The patient follows at [facility] and has not seen an oncologist for the last 4-6 months. I will plan to obtain her prior records from [facility] as discussed with the patient's RN. We will also plan to obtain a CT scan of the chest with contrast for better evaluation of her disease at this time. The patient's ionized calcium is pending and she is receiving calcium replacement of supplementation at this time. We will plan to monitor the patient's progress. We will recommend the patient to follow up with her oncologist as soon as she is discharged from the hospital after this episode of pneumonia. Thank you for allowing us to participate in the care of this pleasant patient. <ELECTRONICALLY SIGNED> By: Radha Reno MD 04/25/19 0920 1805 0048Syed Maude Miranda MD /nt
--- NOTE | 2019-04-25 12:24 | CON ---
[address] [address] CONSULTATION Name: YASMIN ROBLES Room: [address] IN M.R.#: [id number] Admission: 04/21/19 Attend Phys: Festus Foster, Discharge: Date of : 52 Report #: [id number] THIS REPORT FOR: //name// cc: Angela Mcdaniel Maggie M. DO ~ THIS REPORT FOR: //name// CC: Agnela Foster HISTORY OF PRESENT ILLNESS: This is a pleasant 68-year-old female with past medical history significant for metastatic lung cancer, recurrent bowel obstruction and esophagitis, who is presenting for generalized weakness and nausea. The patient additionally reported 3-4 episodes of diarrhea. She denies any blood in stool or abdominal pain. The patient does report malaise, dyspnea on exertion. The GI service has been consulted for evaluation of her diarrhea. The patient has not had a bowel movement today since her hospitalization. Further she specifically denies hematemesis, hematochezia, coffee-ground emesis or melena. PAST MEDICAL HISTORY: Metastatic lung cancer, recurrent history of bowel obstruction. PAST SURGICAL HISTORY: Nonsignificant. SOCIAL HISTORY: The patient quit smoking, denies any alcohol or recreational drug use. FAMILY HISTORY: No family history of colon cancer or Nolan related neoplasia. REVIEW OF SYSTEMS: A comprehensive 10-point review of systems is negative except for what was mentioned in the HPI. PHYSICAL EXAMINATION: VITAL SIGNS: Temperature 36.7, blood pressure 99/47, respiratory rate 18, pulse rate 71, pulse ox 94% on 4 liters. GENERAL: The patient appears weak, malnourished and cachectic, awake, alert and oriented. HEENT: Pupils are equal, round, reactive to light and accommodation. Mucous membranes are moist. There is no congestion. LUNGS: Show coarse bilateral crepitations. ABDOMEN: Soft. There is no distention, guarding or rigidity. EXTREMITIES: Warm, well perfused. There is no edema. LABORATORY DATA: Hemoglobin 8.8, hematocrit 26.3, WBC count 8.6, platelet count 191. INR 1.1. Sodium 138, potassium 3.4, chloride 107, bicarbonate 20, BUN 15, creatinine 0.8, calcium 5[place] [address] CONSULTATION Name: YASMIN ROBLES Cande Room: [address] IN [facility]#: [id number] Admission: 04/21/19 Attend Phys: Festus Foster, Discharge: Date of : 52 Report #: [id number] ASSESSMENT AND PLAN: 1. Pleasant 68-year-old female with metastatic lung cancer, presenting for diarrhea and shortness of breath. I would recommend checking stool, GI path and C. diff to see if she has a treatable cause of diarrhea. I would recommend against any endoscopic evaluation given her current overall prognosis. 2. Anemia. The patient's hemoglobin has fluctuated in the past as well. I would not recommend any endoscopic evaluation for this at this point since there is no overt gastrointestinal bleeding. Keep the hemoglobin above 7. Monitor for overt signs of bleeding such as hematemesis, hematochezia, melena. Otherwise, no further intervention required at this time. Thank you for this consultation. <ELECTRONICALLY SIGNED> By: Ankit Sullivan MD 04/25/19 1224 1742 [id number] Sullivan MD /nt
[2019-04-25 16:00] VITALS: BP 94/45
[2019-04-25 18:37] LABS: BE -3.4 mmol/L (-2 to +3); PCO2 VENOUS 58.8 mmHg (41.0-51.0); PO2 VENOUS 54.1 mmHg (35.0-45.0)
[2019-04-25 20:00] VITALS: BP 82/47
[2019-04-26] VITALS: BP 91/44
[2019-04-26 04:00] VITALS: BP 101/53
[2019-04-26 07:54] LABS: URINE BILIRUBIN NEGATIVE (Negative); URINE BLOOD NEGATIVE (Negative); URINE CLARITY CLEAR; URINE COLOR YELLOW; URINE GLUCOSE-RANDOM NEGATIVE (Negative); URINE KETONES NEGATIVE (Negative); URINE LEUKOCYTES-REFLEX NEGATIVE (Negative); URINE NITRITE-REFLEX NEGATIVE (Negative); URINE PROTEIN NEGATIVE (Negative); URINE UROBILINOGEN 0.2 E.U./dl (0.2-1.0)
[2019-04-26 08:00] VITALS: BP 96/34
--- NOTE | 2019-04-26 13:55 | EKG ---
[place] [address] ELECTROCARDIOGRAM REPORT Name: YASMIN ROBLES Room: [address] IN .R.#: [id number] Admission: 04/21/19 Attend Phys: Festus Davis Discharge: Date of : 52 Date of Service: 04/21/19 1145 Report #: [id number] THIS REPORT FOR: cc: Angela Mcdaniel Maggie M. DO Blick, David R. MD [facility] ~ THIS REPORT FOR: //name// [facility] ED Test Date: 2019-04-21 Test Time: 11:45:23 Pat Name: YASMIN ROBLES Department: Room: 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1950 Requested By: Edouard Briscoe Order Number: [id number] MD: Aguila Roblero Measurements Intervals [place] Rate: 93 P: 81 [place]: 142 QRS: 59 QRSD: 74 T: 54 QT: 379 QTc: 472 Interpretive Statements Sinus rhythm nonspecific t wave changes Biatrial enlargement RSR' in V1 or V2, probably normal variant Compared to ECG 08/20/2018 13:22:39 Atrial abnormality now present RSR' in V1 or V2 now present Electronically Signed On 04-21-2019 15:17:28 CASE PICKER by Aguila Roblero [email or web address] <ELECTRONICALLY SIGNED> By: Aguila Roblero MD, [facility] 04/21/19 1517 1145 1145 Aguila Roblero MD, [facility] /EPI
[2019-04-26 16:14] VITALS: BP 124/62
[2019-04-26 16:52] VITALS: BP 119/53
[2019-04-26 20:00] VITALS: BP 119/68
[2019-04-27] VITALS: BP 87/49
[2019-04-27 04:00] VITALS: BP 122/44
[2019-04-27 05:07] LABS: HEMATOCRIT 23.4 % (37.0-47.0); HEMOGLOBIN 7.7 gm/dL (12.0-15.0); MCH 29.2 pg (26.0-34.0); MCHC 32.9 g/dL (28.0-37.0); MCV 88.8 fL (80.0-100.0); MPV 9.3 fl. (7.2-11.1); RBC 2.64 mil/uL (4.20-5.00); RDW-CV 14.8 % (10.5-14.5); WBC 4.7 thou/uL (4.0-11.0)
[2019-04-27 05:21] LABS: CALCIUM 6.9 mg/dL (8.5-10.1); CREATININE 0.8 mg/dL (0.6-1.3); MAGNESIUM 1.3 mg/dL (1.8-2.4); POTASSIUM 3.8 mmol/L (3.5-5.1)
[2019-04-27 05:38] LABS: CALCIUM 6.9 mg/dL (8.5-10.1); CREATININE 0.9 mg/dL (0.6-1.3)
[2019-04-27 07:50] VITALS: BP 135/54
[2019-04-27 12:22] VITALS: BP 131/73
[2019-04-27 16:17] VITALS: BP 151/87
[2019-04-27 20:00] VITALS: BP 158/72
[2019-04-28 00:14] VITALS: BP 115/73
[2019-04-28 04:28] VITALS: BP 111/75
[2019-04-28 07:00] VITALS: BP 153/62
[2019-04-28] MEDS ORDERED: ACETYLCYST200 MG/1 M INH (10:12)
[2019-04-28] MEDS ORDERED: AUGMENTIN 875-1 EACH PO (10:12)
[2019-04-28] MEDS ORDERED: MUCINEX600 MG PO (10:12)
[2019-04-28] MEDS ORDERED: PREDNISONE 10 M10 MG PO (10:12)
[2019-04-28 11:05] VITALS: BP 153/62
== END 2019-04-28 16:20 | disposition hospice, home (50) | DRG 177 ==
LOC: M.ERS 11:37 → M.2W 14:25 → M.TBA-ER 14:25 → M.2W 18:51
PROVIDERS: Emergency Medicine Emergency Medical Services; Internal Medicine; Internal Medicine Pulmonary Disease; ADMIT Family Medicine
PROC: 30233N1 Transfusion of Nonautologous Red Blood Cells into Peripheral Vein, Percutaneous Approach (ICD-10-PCS; principal; 2019-04-21)
DX: J15.6 Pneumonia due to other Gram-negative bacteria (principal); J96.01 Acute respiratory failure with hypoxia; E43 Unspecified severe protein-calorie malnutrition; J96.21 Acute and chronic respiratory failure with hypoxia; J96.22 Acute and chronic respiratory failure with hypercapnia; C34.92 Malignant neoplasm of unspecified part of left bronchus or lung; C79.51 Secondary malignant neoplasm of bone; F11.20 Opioid dependence, uncomplicated; J44.1 Chronic obstructive pulmonary disease with (acute) exacerbation; N39.0 Urinary tract infection, site not specified; E87.2 Acidosis; F32.9 Major depressive disorder, single episode, unspecified; E78.00 Pure hypercholesterolemia, unspecified; K58.9 Irritable bowel syndrome, unspecified; D64.9 Anemia, unspecified; E87.6 Hypokalemia; E83.42 Hypomagnesemia; E83.51 Hypocalcemia; G89.29 Other chronic pain; Z51.5 Encounter for palliative care; Z66 Do not resuscitate; Z92.21 Personal history of antineoplastic chemotherapy; Z92.3 Personal history of irradiation; Z79.899 Other long term (current) drug therapy; Z79.51 Long term (current) use of inhaled steroids; Z88.1 Allergy status to other antibiotic agents; Z88.6 Allergy status to analgesic agent; Z80.8 Family history of malignant neoplasm of other organs or systems; Z72.0 Tobacco use; Z71.6 Tobacco abuse counseling; Z68.32 Body mass index [BMI] 32.0-32.9, adult